=== PATIENT | female | born 1960 | race African-American/Black ===

== ENCOUNTER 2019-09-04 00:45 | Outpatient (CLI) | payer OTHER, SELFPAY ==
[2019-09-04 18:07] LABS: SARS-CoV-2 RNA PCR Negative
== END 2019-09-04 00:46 | disposition home or self-care (01) ==
LOC: ANHCOVIDDT 00:45
PROVIDERS: PCP Family Medicine; Visit Provider Internal Medicine Gastroenterology
DX: Z01.812 Encounter for preprocedural laboratory examination (principal); Z11.59 Encounter for screening for other viral diseases
CPT/HCPCS: 87635; C9803; U0003

== ENCOUNTER 2020-01-05 08:57 | Emergency (ER) | payer BC, SELFPAY ==
--- NOTE | 2020-01-05 08:58 | ED.GENADULT ---
HPI - General Adult General Chief complaint: Urogenital-Female Stated complaint: UTI SYMPTOMS Time Seen by Provider: 01/05/20 08:58 Source: patient Mode of arrival: ambulatory Limitations: no limitations History of Present Illness HPI narrative: 59-year-old female patient presents to the [facility] with complaints of low back pain for the past 2 to 3 days. Patient denies any injury to the low back that she is aware of. Patient states is on both sides right above the buttocks. Patient states it hurts worse when up walking around and laying flat on her back. Patient states she has been taking some Aleve which has helped the pain at times. Denies any numbness or tingling down the legs and denies any loss of bowel or bladder control. Patient denies any pain with urination, urgency or frequency. Denies any fevers, body aches or chills. Related Data Allergies Allergy/AdvReac Type Severity Reaction Status Date / Time meclizine Allergy Unknown Unknown Verified 01/05/20 09:02 Penicillins Allergy Unknown Unknown Verified 01/05/20 09:02 amoxicillin AdvReac Mild NAUSEA Verified 01/05/20 09:02 Review of Systems Review of Systems: Narrative: CONSTITUTIONAL: Denies fever, chills, or sweats. EYES: Denies visual changes, redness, or discharge. ENT: Denies rhinorrhea, congestion, sore throat, or otalgia. CARDIOVASCULAR: Denies chest pain, palpitations, or edema. RESPIRATORY: Denies cough or dyspnea. GASTROINTESTINAL: Denies abdominal pain, nausea, vomiting, or diarrhea. GENITOURINARY: Denies dysuria or hematuria. SKIN: Denies rash or itching. MUSCULOSKELETAL: Positive low back pain, denies joint pain, or myalgia. NEUROLOGIC: Denies headache, numbness, or weakness. PSYCHIATRIC: Denies anxiety or depression. [facility] Past Medical History Medical History (Updated 01/05/20 @ 09:23 by KARISSA Reagan) Fibroids GERD (gastroesophageal reflux disease) H/O benign neoplasm of eye Hypertension Left hip pain Surgical History Surgical History History of cholecystectomy History of partial hysterectomy History of tubal ligation Family History Family History Unknown No family history of disorders Social History Social History Smoking status: Former smoker Second hand tobacco smoke exposure: No Smoking end date: 02/27/91 Alcohol intake: never Substance use: never Substance use type: does not use Additional living arrangements comments: Adult children live with the pt at her home. Gender identity (if verbalized by the patient): Female Spiritual care concerns: Yes Agree to blood products: Yes Comments At the time of my signature I agree with nursing past medical history, surgical, social, and family history. There is no relevant family history pertinent to the presenting complaint. Exam Narrative: Exam Narrative: GENERAL: Well-appearing, well-nourished, and in no acute distress. HEAD: Normocephalic, atraumatic. EYES: PERRLA and EOMI. ENT: Nares clear, no rhinorrhea or epistaxis. Mucous membranes moist. NECK: Supple. No lymphadenopathy CHEST: Clear to auscultation. No respiratory distress. HEART: Regular rate and rhythm. No murmur heard. Normal peripheral pulses. ABDOMEN: Soft, nontender, nondistended, normal active bowel sounds. BACK: Patient is able to ambulated without assistance. Pt is seated on the stretcher in no obvouis distress. No surface trauma noted. No muscle tenderness to Palpation. No spasm or mass. No step-offs or deformity noted to the cervical, thoracic or lumbar spine to firm Palpation at the midline. Patient does have tenderness noted bilateral sides of the lower lumbar area right above the buttocks. No CVA tenderness to percussion. No saddle anesthesia. ROM: able to stand erect. Normal flexion, extension, Lateral bending and rotation withou
[2020-01-05 09:03] VITALS: BP 136/67; PULSE 83; RESP 12; TEMP 36.2; O2SAT 100
== END 2020-01-05 09:37 | disposition home or self-care (01) ==
PROVIDERS: Emergency Provider Nurse Practitioner Family; PCP Family Medicine
DX: M54.31 Sciatica, right side (principal); Z87.891 Personal history of nicotine dependence; K21.9 Gastro-esophageal reflux disease without esophagitis; I10 Essential (primary) hypertension; Z90.711 Acquired absence of uterus with remaining cervical stump
CPT/HCPCS: 81003; 99213; G0463

== ENCOUNTER 2020-01-10 08:36 | Outpatient (CLI) | payer BC, SELFPAY ==
--- NOTE | ~2020-01-10 | MM_ITS ---
EXAMINATION: MM screening [facility] BI w bren HISTORY: Screening mammogram TECHNIQUE: Craniocaudal and mediolateral oblique 3-D tomosynthesis images were obtained and synthetic 2-D images were generated. CAD analysis was submitted and interpreted. COMPARISON: 05/08/2017, 12/07/2015, 10/23/2014 BREAST PARENCHYMAL COMPOSITION: There are scattered areas of fibroglandular density. FINDINGS: Changes of bilateral subareolar excisional biopsy are noted. There is no evidence of suspic ious mass, calcification, or architectural distortion to suggest malignancy in either breast. There h as been no suspicious interval change. IMPRESSION: 1. No mammographic evidence of malignancy. 2. Recommend routine screening mammography in one year. BI-RADS Category 2: Benign finding(s). Reviewed, dictated and finalized at location A. 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
== END 2020-01-10 08:37 | disposition home or self-care (01) ==
LOC: ANHIMG 08:37
PROVIDERS: PCP Family Medicine; Visit Provider Obstetrics & Gynecology
DX: Z12.31 Encounter for screening mammogram for malignant neoplasm of breast (principal)
CPT/HCPCS: 77063; 77067

== ENCOUNTER 2020-01-14 14:27 | Outpatient (CLI) | payer BC, SELFPAY ==
--- NOTE | ~2020-01-14 | XR_ITS ---
XR lumbar spine 2-3V DATE: 01/14/2020 14:51 INDICATION: Low back pain for one week TECHNIQUE: AP, lateral, coned lateral lumbosacral views COMPARISON: None FINDINGS: Normal alignment of the lumbar spine. No fracture or bone destruction or spondylolisthesis. The lumbar pedicles are intact. There is mild degenerative disc disease at L2-3 and L3-4. The sacroiliac joints are intact. Surgical clips, right upper quadrant, consistent with cholecystectomy IMPRESSION: Mild degenerative disc disease at L2-3 and L3-4 Status post cholecystectomy Reviewed, dictated and finalized at location B. 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
--- NOTE | ~2020-01-14 | XR_ITS ---
XR sacroiliac joints min 3V DATE: 01/14/2020 14:50 INDICATION: Low back pain for one week. No known injury. TECHNIQUE: AP and bilateral oblique views COMPARISON: None FINDINGS: No fracture or dislocation, erosive change or ankylosis of the sacroiliac joints. The pubic symphysis is intact. IMPRESSION: Negative Reviewed, dictated and finalized at Location A. Reviewed, dictated and finalized at location B. 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
== END 2020-01-14 14:28 | disposition home or self-care (01) ==
LOC: ANHIMG 14:30
PROVIDERS: PCP Family Medicine; Visit Provider Family Medicine
DX: M51.36 Other intervertebral disc degeneration, lumbar region (principal)
CPT/HCPCS: 72100; 72202

== ENCOUNTER 2020-08-14 07:07 | Outpatient (CLI) | payer OTHER, SELFPAY ==
[2020-08-14 07:30] LABS: Hematocrit 42.8 % (37.0-47.0); Hemoglobin 13.8 g/dL (12.0-15.0); Mean Corpuscular HGB Conc 32.2 g/dl (32-36); Mean Corpuscular Hemoglobin 27.4 pg (26-34); Mean Corpuscular Volume 85.1 fl (80-100); Mean Platelet Volume 10.5 fl (7.4-10.4); Platelet Count Result 202 k/mm3 (150-375); Red Blood Count 5.03 M/mm3 (4.2-5.4); White Blood Count 4.4 K/mm3 (4.5-10.0)
[2020-08-14 07:45] LABS: Alanine Aminotransferase 39 U/L (4-35); Albumin Level 4.3 g/dL (3.5-5.1); Alkaline Phosphatase 79 U/L (38-126); Anion Gap 8 mmol/L (8-16); Aspartate Amino Transferase 30 U/L (14-36); Bilirubin,Total 0.6 mg/dL (0.2-1.3); Blood Urea Nitrogen 15 mg/dL (7-17); Calcium 9.8 mg/dL (8.4-10.2); Carbon Dioxide 25 mmol/L (22-30); Chloride 108 mmol/L (98-107); Estimated Glomerular Filt Rate > 60; Glucose 106 mg/dL (65-105); Potassium 4.5 mmol/L (3.4-5.0); Sodium 141 mmol/L (137-145)
[2020-08-14 08:21] LABS: Free T4 Free Thyroxine 0.88 ng/mL (0.78-2.19)
[2020-08-18 05:09] LABS: Vitamin D 1,25 (OH)2 Total 45 pg/mL (18-72); Vitamin D2 1,25 (OH)2 <8 pg/mL; Vitamin D3 1,25 (OH)2 45 pg/mL
== END 2020-08-14 07:08 | disposition home or self-care (01) ==
LOC: ANHLAB 07:10
PROVIDERS: PCP Family Medicine; Visit Provider Physician Assistant
DX: E53.8 Deficiency of other specified B group vitamins (principal); E55.9 Vitamin D deficiency, unspecified; R53.83 Other fatigue
CPT/HCPCS: 36415; 80053; 82607; 82652; 84439; 84443; 85027

== ENCOUNTER 2020-11-12 07:40 | Outpatient (CLI) | payer OTHER, SELFPAY ==
[2020-11-12 08:18] LABS: Basophils Percent Auto 0.5 % (0.2-1.2); Eosinophils Absolute Auto 0.1 K/mm3 (0-0.3); Eosinophils Percent Auto 1.3 % (0-4.4); Hematocrit 43.8 % (37.0-47.0); Hemoglobin 13.9 g/dL (12.0-15.0); Lymphocytes Absolute Auto 1.84 K/mm3 (0.9-3.2); Lymphocytes Percent Auto 47.9 % (18.3-44.2); Mean Corpuscular HGB Conc 31.7 g/dl (32-36); Mean Corpuscular Hemoglobin 27.8 pg (26-34); Mean Corpuscular Volume 87.6 fl (80-100); Mean Platelet Volume 10.6 fl (7.4-10.4); Monocytes Absolute Auto 0.2 K/mm3 (0.1-0.6); Monocytes Percent Auto 5.2 % (2.6-8.5); Neutrophils Absolute Auto 1.7 K/mm3 (1.3-6.7); Neutrophils Percent Auto 45.1 % (45.5-73.1); Platelet Count Result 188 k/mm3 (150-375); Red Cell Distribution Width 14.9 % (11.5-14.5); White Blood Count 3.8 K/mm3 (4.5-10.0)
[2020-11-12 08:39] LABS: Hemoglobin A1C 5.7 % (<5.7)
[2020-11-12 08:44] LABS: Alanine Aminotransferase 46 U/L (4-35); Albumin Level 4.5 g/dL (3.5-5.1); Alkaline Phosphatase 80 U/L (38-126); Anion Gap 9 mmol/L (8-16); Aspartate Amino Transferase 31 U/L (14-36); Bilirubin,Total 0.6 mg/dL (0.2-1.3); Blood Urea Nitrogen 16 mg/dL (7-17); Calcium 9.7 mg/dL (8.4-10.2); Carbon Dioxide 26 mmol/L (22-30); Chloride 107 mmol/L (98-107); Cholesterol 241 mg/dL (0-200); Estimated Glomerular Filt Rate > 60; Glucose 105 mg/dL (65-110); HDL Direct 76 mg/dL; Potassium 4.4 mmol/L (3.4-5.0); Sodium 142 mmol/L (137-145); Triglycerides 79 mg/dL (<150)
[2020-11-12 08:55] LABS: LDL Cholesterol Direct 102 mg/dL
[2020-11-12 09:11] LABS: Free T4 Free Thyroxine 0.82 ng/mL (0.78-2.19)
[2020-11-12 09:19] LABS: HIV 1/2 Ab P24 Ag Result Negative (Negative)
[2020-11-12 09:43] LABS: Hepatitis C Virus Antibody Negative (Negative)
== END 2020-11-12 07:41 | disposition home or self-care (01) ==
LOC: ANHLAB 07:46
DX: Z00.00 Encounter for general adult medical examination without abnormal findings (principal)
CPT/HCPCS: 36415; 80053; 80061; 83036; 84439; 84443; 85025; 86703; 86803; G0432

== ENCOUNTER 2021-06-18 07:28 | Outpatient (CLI) | payer OTHER, SELFPAY ==
--- NOTE | ~2021-06-18 | MM_ITS ---
EXAMINATION: MM screening [facility] BI w bren HISTORY: Screening mammogram TECHNIQUE: Craniocaudal and mediolateral oblique 3-D tomosynthesis images were obtained and synthetic 2-D images were generated. CAD analysis was submitted and interpreted. COMPARISON: 01/10/2020, 05/08/2017, 12/07/2015 bilateral screening mammogram examinations BREAST PARENCHYMAL COMPOSITION: There are scattered areas of fibroglandular density. FINDINGS: Surgical clips are noted in each of the subareolar areas, in addition to a biopsy marker in the left subareolar area. History of bilateral excisional biopsies with benign pathology. There is n o evidence of suspicious mass, calcification, or architectural distortion to suggest malignancy in ei ther breast. There has been no suspicious interval change. IMPRESSION: 1. No mammographic evidence of malignancy. 2. Recommend routine screening mammography in one year. BI-RADS Category 2: Benign Reviewed, dictated and finalized at location A.
== END 2021-06-18 07:29 | disposition home or self-care (01) ==
DX: Z12.31 Encounter for screening mammogram for malignant neoplasm of breast (principal)
CPT/HCPCS: 77063; 77067

== ENCOUNTER 2022-05-10 17:36 | Emergency (ER) | payer SELFPAY ==
--- NOTE | ~2022-05-10 | XR_ITS ---
EXAMINATION: XR chest 2V Exam Date/Time: 05/10/2022 17:43 CDT HISTORY: CP Comparison: 01/03/2014. RESULT: Lines, tubes, and devices: Cholecystectomy clips. Surgical clips and biopsy marker overlying the lef t breast. Lungs and pleura: Minimal streaky bibasilar atelectasis/scarring. Lungs otherwise clear. Calcified g ranuloma in the peripheral right lower lung. Cardiomediastinal silhouette: Stable. Other: No acute osseous or upper abdominal finding. IMPRESSION: No acute cardiopulmonary process. Reviewed, dictated and finalized at location K.
--- NOTE | ~2022-05-10 | CT_ITS ---
Clinical Indication: Chest pain CT Scan of the Chest with Contrast: Technique: Contiguous sections were acquired throughout the chest after intravenous administration of 100 cc of Omnipaque 350. Dose reduction technique was used on this scan by utilizing automated expos ure control and iterative reconstruction technique. The dose-length product (DLP) was 311.98 mGy-cm. Findings: There is no evidence of any significant mediastinal, hilar or axillary lymphadenopathy. There is no f illing defect in the pulmonary arterial tree to suggest pulmonary embolus. There is no evidence of ao rtic dissection or aneurysm. There is no evidence of pleural or pericardial effusion. The lungs are clear, aside from mild dependent atelectatic changes. Images through the upper abdomen reveal 4.5 cm hypodense left hepatic lobe mass, which is unchanged a s compared to prior CT dated 01/13/2018.. Impression: No evidence of pulmonary embolus, aortic dissection, or aortic aneurysm. Mild dependent atelectatic changes, otherwise clear lungs. Stable 4.5 cm left hepatic lobe mass, shown previously to represent hemangioma. Reviewed, dictated and finalized at location . Impression: No evidence of pulmonary embolus, aortic dissection, or aortic aneurysm. Mild dependent atelectatic changes, otherwise clear lungs. Stable 4.5 cm left hepatic lobe mass, shown previously to represent hemangioma.
--- NOTE | 2022-05-10 17:39 | ECG_ITS ---
Measurements Intervals [place] Rate: 97 P: 64 UT: 195 QRS: 9 QRSD: 72 T: 47 QT: 337 QTc: 430 Interpretive Statements SINUS RHYTHM NONSPECIFIC ST & T-WAVE ABNORMALITY- ANTEROLAT/INF LEADS BORDERLINE ECG NO PREVIOUS ECG AVAILABLE FOR COMPARISON Electronically Signed On 05-10-2022 21:34:54 CDT by Rod Duran D.O.
[2022-05-10 17:53] VITALS: BP 133/81; PULSE 89; RESP 14; TEMP 36.7; O2SAT 99
[2022-05-10 17:59] LABS: Basophils Percent Auto 0.6 % (0.2-1.2); Eosinophils Absolute Auto 0.1 K/mm3 (0-0.3); Eosinophils Percent Auto 1.7 % (0-4.4); Hematocrit 42.6 % (37.0-47.0); Immature Granulocyte Absolute 0.01 K/mm3 (0.00-0.031); Immature Granulocyte Percent A 0.2 % (0-0.5); Lymphocytes Absolute Auto 2.15 K/mm3 (0.9-3.2); Mean Corpuscular HGB Conc 32.9 g/dl (32-36); Mean Corpuscular Hemoglobin 27.7 pg (26-34); Mean Corpuscular Volume 84.2 fl (80-100); Mean Platelet Volume 10.4 fl (7.4-10.4); Monocytes Absolute Auto 0.3 K/mm3 (0.1-0.6); Monocytes Percent Auto 4.8 % (2.6-8.5); Neutrophils Absolute Auto 2.7 K/mm3 (1.3-6.7); Neutrophils Percent Auto 51.7 % (45.5-73.1); Platelet Count Result 211 k/mm3 (150-375); Red Blood Count 5.06 M/mm3 (4.2-5.4); Red Cell Distribution Width 14.8 % (11.5-14.5); White Blood Count 5.2 K/mm3 (4.5-10.0)
[2022-05-10 18:09] LABS: Alanine Aminotransferase 43 U/L (6-35); Albumin Level 4.5 g/dL (3.5-5.1); Alkaline Phosphatase 85 U/L (38-126); Anion Gap 5 mmol/L (8-16); Aspartate Amino Transferase 34 U/L (14-36); Bilirubin,Total 0.7 mg/dL (0.2-1.3); Blood Urea Nitrogen 10 mg/dL (7-17); Calcium 9.3 mg/dL (8.4-10.2); Carbon Dioxide 26 mmol/L (22-30); Chloride 110 mmol/L (98-107); Estimated CRCL calculation 68 ml/min; Estimated Glomerular Filt Rate > 60; Glucose 119 mg/dL (65-110); Lipase 87 U/L (23-300); Potassium 3.5 mmol/L (3.4-5.0); Sodium 141 mmol/L (137-145)
[2022-05-10 18:15] LABS: INR 1.1; Prothrombin Time 13.9 Seconds (11.1-14.7)
[2022-05-10 18:16] LABS: Partial Thromboplastin Time 27.4 SECONDS (22.3-36.8)
[2022-05-10 18:18] LABS: Troponin I < 0.012 ng/mL (0.000-0.034)
[2022-05-10 21:37] VITALS: PULSE 66
[2022-05-10 21:38] VITALS: BP 119/86; PULSE 78; RESP 16; O2SAT 98
[2022-05-10 21:51] LABS: Troponin I < 0.012 ng/mL (0.000-0.034)
[2022-05-10 22:00] VITALS: BP 124/77; PULSE 73; RESP 18; O2SAT 95
[2022-05-10 23:00] VITALS: BP 109/75; PULSE 68; RESP 17; O2SAT 95
[2022-05-10] MEDS: KETOROLAC 30 MG/ML VIAL (*BKC) 15 MG IV PUSH (23:28)
--- NOTE | 2022-05-11 00:55 | ED.GENADULT ---
HPI - General Adult General Chief complaint: Chest Pain Stated complaint: Chest Pain Time Seen by Provider: 05/10/22 21:24 History of Present Illness HPI narrative: Patient is a 61-year-old female who presents emerged from with chief complaint of chest pain. Patient reports has been having pain in the right side of her chest reports it started about a week ago reports sharp worse with inspiration worse with movement and palpation Related Data Allergies Allergy/AdvReac Type Severity Reaction Status Date / Time meclizine Allergy Unknown Unknown Verified 01/05/20 09:02 Penicillins Allergy Unknown Unknown Verified 01/05/20 09:02 amoxicillin AdvReac Mild NAUSEA Verified 01/05/20 09:02 Review of Systems Review of Systems: A 10 system review of systems was completed on the patient and is negative except for what is stated in the HPI. Nursing and ancillary documentation was reviewed. [facility] Past Medical History Medical History Fibroids GERD (gastroesophageal reflux disease) H/O benign neoplasm of eye Hypertension Left hip pain Surgical History Surgical History History of cholecystectomy History of partial hysterectomy History of tubal ligation Family History Family History Unknown No family history of disorders Social History Social History Smoking status: Former smoker Second hand tobacco smoke exposure: No Smoking end date: 02/27/91 Alcohol intake: never Substance use: never Substance use type: does not use Living arrangements: with friend(s) Additional living arrangements comments: Adult children live with the pt at her home. Occupation/Education: occupation Gender identity (if verbalized by the patient): Female Spiritual care concerns: Yes Agree to blood products: Yes Exam Narrative: GENERAL: Well-appearing, well-nourished, and in no acute distress. HEAD: Normocephalic, atraumatic. EYES: PERRLA and EOMI. ENT: Nares clear, no rhinorrhea or epistaxis. Mucous membranes moist. NECK: Supple. CHEST: Clear to auscultation. No respiratory distress. Chest wall is tender to palpation HEART: Regular rate and rhythm. No murmur heard. Normal peripheral pulses. ABDOMEN: Soft, nontender, nondistended, normal active bowel sounds. EXTREMITIES: Normal range of motion. No edema. SKIN: Warm, dry, no rash. NEURO: No focal deficits. Alert and oriented x3. PSYCH: Normal mood and affect. Course Vital Signs Vital signs: Vital Signs Temperature 36.7 C 05/10/22 17:53 Pulse Rate 89 05/10/22 17:53 Respiratory Rate 14 05/10/22 17:53 Blood Pressure 133/81 05/10/22 17:53 Pulse Oximetry 99 05/10/22 17:53 Oxygen Delivery Room Air 05/10/22 17:53 Temperature 36.7 C 05/10/22 17:53 Pulse Rate 64 05/11/22 01:36 Respiratory Rate 17 05/11/22 01:36 Blood Pressure 128/87 05/11/22 01:36 Pulse Oximetry 97 05/11/22 01:36 Oxygen Delivery Room Air 05/10/22 17:53 Medical Decision Making MDM Narrative Medical decision making narrative: Differential diagnosis include pleuritic pain, chest wall pain, pulmonary embolism, ACS, Presents with EKG shows sinus rhythm rate of [address] elevation or ST depression Chest x-ray shows no focal infiltrate CT of the chest showed no evidence of pulmonary embolism or acute findings. Laboratory studies were obtained which showed negative troponins for 2 sets. Normal electrolytes including normal liver enzymes. CBC was within normal limits Vital Signs Vital Signs: Vital Signs Temperature 36.7 C 05/10/22 17:53 Pulse Rate 89 05/10/22 17:53 Respiratory Rate 14 05/10/22 17:53 Blood Pressure 133/81 05/10/22 17:53 Pulse Oximetry 99 05/10/22 17:53 Oxygen Delivery Room Air
[2022-05-11 01:36] VITALS: BP 128/87; PULSE 64; RESP 17; O2SAT 97
[2022-05-11 02:15] VITALS: BP 120/88; PULSE 62; RESP 16; O2SAT 98
== END 2022-05-11 02:15 | disposition home or self-care (01) ==
PROVIDERS: Emergency Medicine; Emergency Provider Emergency Medicine
DX: R07.89 Other chest pain (principal); I10 Essential (primary) hypertension; K21.9 Gastro-esophageal reflux disease without esophagitis; Z90.711 Acquired absence of uterus with remaining cervical stump; Z87.891 Personal history of nicotine dependence; R94.31 Abnormal electrocardiogram [ECG] [EKG]; D18.09 Hemangioma of other sites
CPT/HCPCS: 36415; 71046; 71275; 80053; 83690; 84484; 85025; 85610; 85730; 93005; 96374; 99284; J1885; Q9967

== ENCOUNTER 2023-06-05 12:23 | Outpatient (CLI) | payer SELFPAY ==
--- NOTE | ~2023-06-05 | MM_ITS ---
EXAMINATION: MM screening [facility] BI w bren HISTORY: Screening mammogram TECHNIQUE: Craniocaudal and mediolateral oblique 3-D tomosynthesis images were obtained and synthetic 2-D images were generated. CAD analysis was submitted and interpreted. COMPARISON: June 16, 2021, January 10, 2020 bilateral screening mammogram examinations BREAST PARENCHYMAL COMPOSITION: There are scattered areas of fibroglandular density. FINDINGS: Surgical clips and associated chronic postoperative change are noted in both subareolar are as. Occasional small low-density circumscribed benign-appearing opacities are noted. There is no evid ence of suspicious mass, calcification, or architectural distortion to suggest malignancy in either b reast. There has been no suspicious interval change. IMPRESSION: 1. No mammographic evidence of malignancy. 2. Recommend routine screening mammography in one year. BI-RADS Category 2: Benign finding(s). Reviewed, dictated and finalized at location B.
== END 2023-06-05 12:24 ==
PROVIDERS: PCP Obstetrics & Gynecology; Visit Provider Obstetrics & Gynecology
DX: Z12.31 Encounter for screening mammogram for malignant neoplasm of breast (principal)
CPT/HCPCS: 77063; 77067

== ENCOUNTER 2024-09-14 05:51 | Emergency (ER) | payer SELFPAY ==
[2024-09-14] VITALS (7 sets, daily range): BP systolic 104–111; BP diastolic 78–80; PULSE 65–80; RESP 18–20; TEMP 36.9; O2SAT 98–100
--- NOTE | ~2024-09-14 | XR_ITS ---
EXAMINATION: XR chest 2V 09/14/2024 06:30 INDICATION: Shortness of breath PROCEDURE: PA and lateral views of the chest COMPARISON: 05/10/2022 FINDINGS: The lungs are clear. The cardiomediastinal silhouette is within normal limits. There are no pleural effusions. There is no pneumothorax suspected. IMPRESSION: 1: NO ACUTE CARDIOPULMONARY DISEASE. Reviewed, dictated and finalized at location A.
--- OUTSIDE RECORDS SUMMARY | 2024-09-14 05:54 | XMS_ITS | Clinical Summary ---
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
--- OUTSIDE RECORDS SUMMARY | 2024-09-14 05:54 | XMS_ITS | Clinical Summary ---
Author Organization [facility] [employer] Address [address] [place] [address] Care Team Providers Care Surveillance Inspector Name Role Phone Yousuf Blair MD Primary Care Provider [phone] Source Comments [facility] [employer],non-owned Affiliates and Associated Physician Practices is amultiple site organization consisting of ambulatory clinics and hospital sitesin [place], [place], [place] and [place]. This disclosure is being madepursuant to the Care Everywhere program and may not contain all information available regarding this patient. Last updated 17.[facility] [employer] Allergies Active Allergy Reactions Criticality Noted Date Comments Amoxicillin 12/16/2015 Medications * Be aware that medications may not be up to date on this document. Always verify current medications with the patient. 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 Gender Identity Not on file Sexual Orientation Not on file Last Filed Vital Signs Vital Sign Reading Time Taken Comments Blood Pressure 125/75 03/20/2018 8:55 AM TRUCK DRIVER HELPER Pulse 69 03/20/2018 8:55 AM TRUCK DRIVER HELPER Temperature 36.9 C (98.5 F) 03/20/2018 8:25 AM TRUCK DRIVER HELPER Respiratory Rate 18 03/20/2018 8:55 AM TRUCK DRIVER HELPER Oxygen Saturation 97% 03/20/2018 8:55 AM TRUCK DRIVER HELPER Inhaled Oxygen Concentration - - Weight 72.6 kg (160 lb) 03/20/2018 6:46 AM TRUCK DRIVER HELPER Height 154.9 cm (5' 1) 03/20/2018 6:46 AM TRUCK DRIVER HELPER Body Mass Index 30.23 03/20/2018 6:46 AM TRUCK DRIVER HELPER Plan of Treatment Health Maintenance Due Date Last Done Comments COLOGUARD (AGES 45-75) - COL ON CA SCREENING 1961 COLON MONITORING 1961 COLONOSCOPY - COLON CA SCREENING 1961 CT COLONOGRAPHY - COLON CA SCREENING 1961 Colorectal Cancer Screening 1961 FIT - COLON CA SCREENING 1961 FLEX SIG - COLON CA SCREENING 1961 LIPID TESTING 1961 MAMMOGRAM 1961 HIV SCREENING 1976 HEPATITIS C SCREENING 11/18/1979 DTAP/TDAP/TD VACCINES (1 - Tdap) 1980 PNEUMOCOCCAL VACCINE 50+ (1 of 1 - PCV) 11/23/2011 ZOSTER VACCINE (1 of 2) 11/23/2011 COVID-19 VACCINE (3 - 2023-2 5 season) 2023 06/19/2020, 05/22/2020 DEPRESSION SCREENING 02/28/2024 INFLUENZA VACCINE (#1) 2024 Respiratory Syncytial Virus (RSV) Vaccine Pt: or over 60 yrs (1 - 1-dose 75+ series) 2036 HEPATITIS B VACCINE Aged Out No longe r eligible based on patient's age to complete this topic HIB VACCINE Aged Out No longer eligi ble based on patient's age to complete this topic HPV VACCINE Aged Out No longer eligi ble based on patient's age to complete this topic MENINGOCOCCAL (Group B) VACCINE SHARED DECISION-MAKING Aged Out No longer eligible based on patient's age to complete this topic MENINGOCOCCAL GROUPS A/C/Y/W VACCINE Aged Out No longer eligible b ased on patient's age to complete this topic Insurance ANTHEM ANTHEM ANTHEM ANTHEM Advance Directives * Full Code (Latest Code Status on File) Date Activated Date Inactivated Comments 03/20/2018 6:43 AM 03/20/2018 10:15 AM Care Teams Surveillance Inspector Relationship Specialty Start Date End Date Yousuf Blair MD [address] [place] [address] PCP - General 09/03/10
--- OUTSIDE RECORDS SUMMARY | 2024-09-14 05:54 | XMS_ITS | Referral Summary ---
Author Organization [facility] Medical Office Building [address] Address [address] [place] [address] Care Team Providers Care Process Manager Name Role Phone Katharine Negro MD Primary Care Provide r Allergies Active Allergy Reactions Criticality Noted Date Comments Amoxicillin Vomiting Low 12/16/2015 Medications multivitamin tablet Take 1 tablet by mouth 3 (three) times a day with meals Active dimenhyDRINATE (Dramamine) 50 mg tablet,chewable Indications:Maria Elena tigo Take 50 mg by mouth 4 (four) times a day 60 tablet 1 Active Additional Information Patient not taking.Reported on 05/23/2022 tiZANidine (ZANAFLEX) 2 mg tabletIndicatio ns:Muscle Spasm Take 1 tablet (2 mg total) by mouth every 6 (six) hours as needed for muscle spasms for up to 14 days 30 tablet [address] (PROTONIX) 40 mg EC tablet TAKE 1 TABLET BY MOUTH EVERY DAY 90 tablet 3 Active meclizine (ANTIVERT) 12.5 mg tablet Take 1 tablet (12.5 mg total) by mouth 3 (three) times a day as needed for dizziness 90 tablet 4 3 Active scopolamine 1 mg over 3 days patch [address] 1 patch on the skin every third day as needed (nausea) 4 patch 3 Active irbesartan (AVAPRO) 150 mg tablet TAKE 1 TABLET BY MOUTH EVERY DAY 30 tablet 4 Active Active Problems Problem Noted Date Diagnosed Date Other chest pain 05/23/2022 Assessment & Plan (09/06/2022 5:03 PM CDT): Likely MSK Holter monitor unremarkable She went to [place] and had ct of the chest which was negative for PE, states the EKG was negative as well Offered physical therapy but declines. Wants to do the exercises a physical therapist told her about. Recommend Go to the ER for worsening chest pain If no improvement will exercises can consider cardio referral but very low suspicion for acs Assessment & Plan (05/23/2022 8:47 AM CDT): Ordered 21 day cardio net monitor Seek ER if chest pain worsens, or starts on left side with radiating pain to arm and/or jaw Muscle spasm of shoulder region 05/23/2022 Assessment & Plan (05/23/2022 8:47 AM CDT): Ordered Tizanidine 2 mg every 6 hours prn Ordered PT eval and tx for muscle spasm/strain of trapezius Alternate ice and heat prn at 20 minute intervals Gastroesophageal reflux disease without esophagi tis 05/23/2022 Overview (05/23/2022): Ordered pantoprazole 40 mg daily for 8 week trial Healthy diet- avoid spicy, greasy, fried, and fatty foods Avoid late night eating Encounter for follow-up exam ination after completed treatment for conditions other than malignant neoplasm 05/23/2022 Overview (05/23/2022): We discussed patient emergency room visit and complaints Will obtain emergency room documentation, labs, and Imaging reports for review- request has been sent Follow up in 3 months Elevated ALT measurement 11/23/2020 Assessment & Plan (11/23/2020 9:51 AM CDT): Slightly elevated alt in the 40s on labs Patient states has been elevated in the past Will continue to monitor and should it increase will do further testing Encounter for wellness examination 11/09/2020 Assessment & Plan (11/09/2020 10:08 AM CDT): Colonoscopy due in 2024 Pap smear with Ob Mammo refer order today Tdap given today Recommending getting zoster vaccine at pharmacy as there is a long wait list for the zoster vaccine at our location Will order a CBC, a CMP, lipid panel, TSH, T4, hepatitis-C, and HIV RTC in November for flu vaccine Dizziness 11/09/2020 Assessment & Plan (09/06/2022 4:09 PM CDT): Likely vertigo Trial of meclizine tid prn Referral to ENT given F/u prn Assessment & Plan (05/23/2022 8:56 AM CDT): Encouraged to stay hydrated- drink plenty of water Patient has not taken dramamine- encouraged to take prn-use as directed Plan to consult ENT if no improvement Assessment & Plan (11/23/2020 9:26 AM CDT): [place] hallpike negative,Orthostatics negative in office Did Meagan maneuver in office given sowmya hallpike caused dizziness and hx of vertigo Patient did not take the Dramamine Encouraged to increase water intake Encouraged to go to the eye doctor If no improvement with diet, exercise, and increase water, can consider sending patient to neurology given has been going on for 3-4months Assessment & Plan (11/09/2020 10:02 AM CDT): Instructed patient to keep a diary of any aggravating or alleviating factors for her dizziness Encouraged low-salt diet and increase fluid intake Trial of Dramamine for 2 weeks. Risk and benefits reviewed. Follow-up in 2 weeks for evaluation Will consider neurology referral next visit if no clear etiology Essential hypertension 11/09/2020 Assessment & Plan (09/06/2022 5:04 PM CDT): Bp in the office today BP Readings from Last 1 Encounters: 09/06/22 118/70 at goal Continue current regimen of irbesartan 150mg daily Recommend DASH diet, heart-healthy lifestyle, exercise. Discussed the risks of hypertension. Follow up at annual Assessment & Plan (05/23/2022 8:48 AM CDT): Continue with Irbesartan 150 mg daily Monitor blood pressure prn Assessment & Plan (06/17/2021 8:40 AM CDT): Bp in the office today BP Readings from Last 1 Encounters: 06/17/21 118/80 at goal Continue current regimen of irbesartan 150mg daily Recommend DASH diet, heart-healthy lifestyle, exercise. Discussed the risks of hypertension. Follow up at annual Assessment & Plan (11/09/2020 10:05 AM CDT): Stable / clinically quiescent. Will continue to monitor. Continue current medication regimen of irbesartan 150 mg daily Recommend DASH diet, heart-healthy lifestyle, exercise. Discussed the risks of hypertension. History of colon polyps 12/11/2019 Overview (12/11/2019): Added automatically from request for surgery [id number] Resolved Problems Problem Noted Date Diagnosed Date Resolved Date Screen for colon cancer 12/11/201910/29 Overview (12/11/2019): Added automatically from request for surgery [id number] Immunizations Immunization Administration Dates Next Due Influenza, Unspecified 09/06/2022(Deferr ed: Patient Refused),05/23/2022(Deferred: Patient Refused),02/27/2022(Deferred: Patient Refused),09/27/2021(Deferred: Patient Refused),11/23/2020(Deferred: Patient Refused),11/09/2020(Deferred: Patient Refused),09/27/2020(Deferred: Patient Refused),11/28/2019(Deferred: Patient Refused),09/28/2019(Deferred: Patient Refused) TD Preservative Free 02/23/2004 Tdap 11/09/2020 Social History Tobacco Use Types Packs/Day Years Used Date Smoking Tobacco: Never Smokeless Tobacco: Never Tobacco Cessation:Counseling Given: Not Answered PHQ-2 Answer Date Recorded PHQ-2 Total Score (If total score is 3 or more points, staff should administer the PHQ-9) 0 09/06/2022 Personal Safety Answer Date Recorded Getting School Help Needed Not on file 05/06 Comments No Sex and Gender Information Value Date Recorded Sex Assigned at Not on file Legal Sex Female 4:04 PM CDT Gender Identity Not on file Sexual Orientation Not on file Last Filed Vital Signs Vital Sign Reading Time Taken Comments Blood Pressure 118/70 09/06/2022 3:51 PM CDT Pulse 85 09/06/2022 3:51 PM CDT Temperature 36.8 C (98.2 F) 11/09/2020 8:16 AM CDT Respiratory Rate 16 09/06/2022 3:51 PM CDT Oxygen Saturation 97% 09/06/2022 3:51 PM CDT Inhaled Oxygen Concentration - - Weight 73 kg (161 lb) 09/06/2022 3:51 PM CDT Height 154.9 cm (5' 0.98) 09/06/2022 3:51 PM CD T Body Mass Index 30.44 09/06/2022 3:51 PM CDT Plan of Treatment Not on file Procedures Procedure Name Priority Date/Time Associated Diagnosis Comments SCREENING MAMMOGRAM BILATERAL W FREDY Schedule Routine, Read Routine (OP Routine) 06/18/2021 Screening mammogram, encounter for HEPATITIS C ANTIBODY Routine 11/12/2020 COLONOSCOPY 12/27/2019 10:56 AM CDT from Last 3 Months or Most Recently Relevant to Health Maintenance Results * Screening Mammogram Bilateral W Fredy (06/18/2021) Anatomical Region Laterality Modality Breast Bilateral Mammography Katharine Negro MD IMG MAMMO PROCEDURES Final Result * Hepatitis C antibody (11/12/2020) SCRIBED HCV ab neg EXTERNAL LAB Blood specimen (specimen) 11/12/2020 Historical Provider LAB MICROBIOLOGY - GENERA L ORDERABLES Final Result EXTERNAL LAB * COLONOSCOPY (12/27/2019 10:56 AM CDT) Anatomical Region Laterality Modality Other Narrative Procedure Note Ben Lemus MD - 12/27/2019 10:56 AM CDT [facility] Patient Name: Raiza Pink Procedure Date: 12/27/2019 10:56AM Date of : 1960 Admit Type: Outpatient Age: 59 Gender: Female Attending MD: Ben Lemus M.D. Room: [facility] ENDOSCOPY ROOM 2 Note Status: Finalized Patient Profile: Refer to note in patient chart for documentation of history and physical. Procedure: Colonoscopy Indications: High risk colon cancer surveillance: Personalhistory of colonic polyps, Last colonoscopy: 2014 Referring MD: Darline Harris M.D. Providers: Ben Lemus M.D. Impression: - Hemorrhoids found on perianal exam. - One 2 mm polyp in the sigmoid colon, removed witha jumbo cold forceps. Resected and retrieved. - One 5 mm polyp in the rectum, removed with a hot biopsy forceps. Resected and retrieved. - Diverticulosis in the sigmoid colon. - The examination was otherwise normal. Recommendation: - Discharge patient to home. - Resume previous diet. - Continue present medications. - Await pathology results. - Repeat colonoscopy in 5 years for surveillance. - Return to primary care physician as previously scheduled. Medicines: Propofol per Anesthesia Complications: No immediate complications. Estimated Blood Loss: Estimated blood loss: none. Procedure: Pre-Anesthesia Assessment: - This assessment was completed [Time of Assessment] prior to the administration of sedation. The benefits, risks and alternatives of theprocedure and sedation were discussed and informed consent was obtained. All questions were answered. Please referto the signed informed consent document in the medical record. The scope was passed under direct vision.The Colonoscope [id number] was introducedthrough the anus and advanced to the the cecum, identifiedby appendiceal orifice and ileocecal valve. Bowel prepwas administered using a single dose. The bowelpreparation used was Miralax. The bowel preparation used was bisacodyl tablets. The colonoscopy was performed without difficulty. The patient tolerated theprocedure well. The quality of the bowel preparation was excellent. Findings: Hemorrhoids were found on perianal exam. A 2 mm polyp was found in the sigmoid colon. The polyp was sessile.The polyp was removed with a jumbo cold forceps. Resection and retrieval were complete. Verification of patient identification for thespecimen was done by the physician and nurse using the patient's name andbirth date. Estimated blood loss was minimal. A 5 mm polyp was found in the rectum. The polyp was sessile. Thepolyp was removed with a hot biopsy forceps. Resection and retrieval were complete. Verification of patient identification for the specimen was done by the physician and nurse using the patient's name and birthdate. Estimated blood loss was minimal. Multiple small and large-mouthed diverticula were found in thesigmoid colon. The exam was otherwise without abnormality. Electronically signed by Ben Lemus M.D. Ben Lemus M.D. 12/27/2019 11:28:53 AM Number of Addenda: 0 Note Initiated On: 12/27/2019 10:56 AM Procedure Code(s): --- Professional --- 78880, Colonoscopy, flexible; with removal of tumor(s), polyp(s), or other lesion(s) by hot biopsy forceps 20439, 59, Colonoscopy, flexible; with biopsy, single or multiple Diagnosis Code(s): --- Professional --- K57.30, Diverticulosis of large intestine without perforation orabscess without bleeding K62.1, Rectal polyp D12.5, Benign neoplasm of sigmoid colon K64.9, Unspecified hemorrhoids Z86.010, Personal history of colonic polyps CPT copyright 2017 [employer]. All rights reserved. The codes documented in this report are preliminary and upon hydrodynamics teacher reviewmay be revised to meet current compliance requirements. Recognized by the [employer] for promoting quality in endoscopy Ben Lemus MD ENDOSCOPY PROCEDURES Final Re sult from Last 3 Months or Most Recently Relevant to Health Maintenance Insurance [employer] Advance Directives For more information, please contact: [phone] * Full Code (Latest Code Status on File) Date Activated Date Inactivated Comments 12/27/2019 10:05 AM 12/27/2019 4:24 PM Care Teams Process Manager Relationship Specialty Start Date End Date Katharine Negro MD [address] [facility] [address] [place] [address] [place] [address] PCP - General Family Medicine 05/17/22
--- OUTSIDE RECORDS SUMMARY | 2024-09-14 05:54 | XMS_ITS | Data Portability ---
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 Raiza Pink is a 62 y/o F presenting to the clinic for 3 month follow up of her prediabetes. [email or web address] Not available 11/20/2023 07:58:01 07/16/2024 07/16/2024 Memory concern Cognitive Concerns Acute, uncomplicated - Cognitive testing - Cognitive engagement activities - Monitor symptom progression Not available 07/16/2024 19:01:35 Plan of Treatment Reminders Order Date Submit Date Provider Last Modified By Organization Details Last Modified Time Details Appointments None record ed. Lab HbA1c (hemog lobin A1c), blood 2024 025 [facility]ULLICA [facility], [address] [place] [address], [address], [place], [address], 5 08:28:48 lipid panel, serum 2024 025 [facility], [address] [place] [address], [address], [place], [address], 5 08:28:45 CBC w/ auto diff 2024 025 [facility], [address] [place] [address], [address], [place], [address], 5 08:28:51 TSH + free T4, serum 2024 025 [facility], [address] [facility], [address], [place], [address], 5 08:28:44 iron + TIBC + ferrit in, serum 2024 PAT[facility], [address] [place], [place] [address]ladi Gonzalez, [address], [place], [address], 08:28:52 vitami n B12, serum 2024 PATY [facility], [address] [place], [place] [address]ladi Gonzalez, [address], [place], [address], 5 08:28:49 vitami n D, 25-hyd justice, total, serum 2024 025 [facility], [address] [place], [place] [address]ladi Gonzalez, [address], [place], [address], 5 08:28:53 noninv asive colore ctal cancer DNA + occult blood screen ing, QL, stool 2024 [facility] Only), [address], [address], [place], [address], 5 10:15:19 CMP, serum or plasma 2024 025 [facility], [address] [place], [place] [address]ladi Gnozalez, [address], [place], [address], 5 08:28:47 rapid strep group A, throat 2023 024 [email or web address] In-Office Order, Internal Use Only DO Not Attach Compendium DO Not Attach Compendium, Do Not Delete/merge, [id number] 11:39:55 HbA1c (hemog lobin A1c), blood 2023 024 [email or web address] In-Office Order, Internal Use Only DO Not Attach Compendium DO Not Attach Compendium, Do Not Delete/merge, [id number] 17:02:12 Referral None record ed. Procedures polyso mnogra phy (PROC) [address], [address] [place] [address] [address], [place], [address], 5 18:30:27 Surgeries None record ed. Imaging MAMMO, screen ing, digita l, bilate ral 2024 025 [facility], [address] [place] [address], [address], 5 08:26:52 MAMMO, screen ing, digita l, bilate ral 2024 025 [facility] (Imaging), [facility] [address], [place], [address], 5 08:19:46 Medication Orders atorva statin 20 mg tablet 2024 025 [facility] [id number], [address], 5 10:10:54 irbesa rtan 150 mg tablet 2024 025 [facility] [address] In [place] [address] [facility], [place], [address], 5 10:10:13 ergoca lcifer ol (vitam in D2) 1,250 mcg (50,00 0 unit) capsul e 2024 025 [email or web address] [facility] In [facility], [address] , [place], [address], 09:09:58 nystat in 100,00 0 unit/g nish topica l cream 2024 025 PATY [id number] In [facility], [address], [place], [address], 11:17:41 cetiri zine 10 mg tablet 2023 024 [email or web address] [facility] [address] In [facility], [address], [place], [address], 10:30:05 flutic asone propio gavin 50 mcg/ac tuatio n nasal spray, suspen debra 2023 025 PATY [facility] [address] In [facility], [address] [facility], [place], [address], 10:29:53 Patient TargetsNo targets recorded. Patient Instructions Encounter Date Encounter Id Patient Instructions Last Modified By Organization Details Last Modified Time 11/16/2023 [id number] A healthy lifestyle: care instructions [email or web address] Not available 11/16/2023 17:02:11 I saw the patien t with the resident. I agree with the resident's assessment and plan as documented Jeffrey Pollock MD Not available 11/16/2023 17:00:56 01/31/2024 [id number] A healthy lifestyle: care instructions [email or web address] Not available 01/31/2024 11:39:55 On the date of this encounter, I was immediately available to assist the resident/fellow in the care of the patient, and have reviewed and agree with the resident s findings and plan of care as discussed during appointment. MD Foreign [email or web address] Not available 01/31/2024 10:42:45 05/06/2024 [id number] A healthy lifestyle: care instructions [email or web address] Not available 05/06/2024 11:17:37 mammogram: about this test Not available 05/06/2024 11:48:24 07/16/2024 [id number] high cholesterol : care instructions Not available 07/16/2024 10:09:57 A healthy lifestyle: care instructions Not available 07/16/2024 10:09:57 learning about high blood pressure [email or web address] Not available 07/16/2024 10:09:57 Dear patient, Thank you for visiting today. Here is a summary of the keith instructions: Medications: - Continue taking irbesartan for high blood pressure - Continue taking atorvastatin for cholesterol - Take prescription vitamin D weekly (high-dose) - Continue taking [id number] daily vitamin D if desired Labs and Tests: - Complete ordered blood tests, including: - Vitamin D level - B12 level - Iron levels - Blood counts - Thyroid function - Lipid panel - Cholesterol levels - A1c for prediabetes - Comprehensive metabolic panel (CMP) Screenings: - Schedule a pap smear with Dr. Pacheco - Complete Cologuard test when it arrives in the mail Lifestyle Changes: - Drink more water during the day and less in the evening - Stay active with walking or light weight lifting - Try puzzles or games like Sidelines or Sensdatau to keep your mind sharp Symptom Management: - For constipation, try prunes or MiraLax - For allergies, try [id number]-[id number] Zyrtec or Flonase - For eczema, avoid perfumes and oils, use topical steroids, and moisturize - Take blood pressure once a day, especially if you have a headache Follow-up: - Schedule an appointment with Dr. Pacheco for a pap smear - Wait for contact about lab results - Return for a follow-up visit if any lab results are abnormal Please reach out if you have any questions or concerns. Best Regards, Jeffrey Pollock MD Family Medicine Not available 07/16/2024 18:57:55 08/12/2024 [id number] mammogram: about this test Not available 08/12/2024 11:30:41 A healthy lifestyle: care instructions Not available 08/12/2024 18:06:51 Reason for Referral None Reported. Results Created Date Observation Date Name Description Value Unit Range Abnormal Flag Note LastModifiedBy Organization Detail LastModifiedTime 11/16/19 24 11/16/2023 HbA1c (hemo globi n A1c), blood HbA1c 5.9 Not Available In-Office Order Internal Use Only DO Not Attach Compendium DO Not Attach Compendium, Do Not Delete/merge, [id number] 11/16/2023 16:31:59 01/31/20 24 01/31/2024 rapid strep group A, throa t Strep negati ve Not Available In-Office Order Internal Use Only DO Not Attach Compendium DO Not Attach Compendium, Do Not Delete/merge, [id number] 01/31/2024 10:36:33 07/17/19 25 07/17/2024 TSH+F REE T4 TSH 1.430 uIU/m L 0.450- 4.500 Not Available [facility] ([facility]) [address] [place], [address], 07/17/2024 08:28:44 07/17/19 25 07/17/2024 TSH+F REE T4 T4,free(dire ct) 0.93 NG/dL 0.82-1 .77 Not Available [facility] ([facility]) [address] [place], [address], 07/17/2024 08:28:44 07/17/19 25 07/17/2024 LIPID PANEL cholesterol, total 171 mg/dL 100-19 9 Not Available [facility] ([facility]) [address] [place], [address], 07/17/2024 08:28:45 07/17/19 25 07/17/2024 LIPID PANEL triglyceride s 90 mg/dL 0-149 Not Available [facility]) [address] [place], [address], 07/17/2024 08:28:45 07/17/19 25 07/17/2024 LIPID PANEL HDL cholesterol 71 mg/dL >39 Not Available [facility]) [address] [place], [address], 07/17/2024 08:28:45 07/17/19 25 07/17/2024 LIPID PANEL VLDL cholesterol luz marina 16 mg/dL 5-40 Not Available [facility] ([facility]) [address] [place], [address], 07/17/2024 08:28:45 07/17/19 25 07/17/2024 LIPID PANEL LDL chol calc ([facility]) 84 mg/dL 0-99 Not Available [facility]) [address] [place], [address], 07/17/2024 08:28:45 07/17/19 25 07/17/2024 COMP. METAB OLIC PANEL (14) glucose 95 mg/dL 70-99 Not Available [facility] ([facility]) [address] [place], [address], 07/17/2024 08:28:47 07/17/19 25 07/17/2024 COMP. METAB OLIC PANEL (14) BUN 11 mg/dL 8-27 Not Available [facility] ([facility]) [address] [place], [address], 07/17/2024 08:28:47 07/17/19 25 07/17/2024 COMP. METAB OLIC PANEL (14) creatinine 0.90 mg/dL 0.57-1 .00 Not Available [facility] ([facility]) [address] [place], [address], 07/17/2024 08:28:47 07/17/19 25 07/17/2024 COMP. METAB OLIC PANEL (14) eGFR 72 mL/mi n/1.7 3 >59 Not Available [facility] ([facility]) [address] [place], [address], 07/17/2024 08:28:47 07/17/19 25 07/17/2024 COMP. METAB OLIC PANEL (14) BUN/creatini ne ratio 12 12-28 Not Available [facility] ([facility]) [address] [facility] [place], [address], 07/17/2024 08:28:47 07/17/19 25 07/17/2024 COMP. METAB OLIC PANEL (14) sodium 140 mmol/ L 134-14 4 Not Available [facility] ([facility]) [address] [facility] [place], [address], 07/17/2024 08:28:47 07/17/19 25 07/17/2024 COMP. METAB OLIC PANEL (14) potassium 4.3 mmol/ L 3.5-5. 2 Not Available [facility] ([facility]) [address] [place], [address], 07/17/2024 08:28:47 07/17/19 25 07/17/2024 COMP. METAB OLIC PANEL (14) chloride 106 mmol/ L 96-106 Not Available [facility] ([facility]) [address] [facility] [place], [address], 07/17/2024 08:28:47 07/17/19 25 07/17/2024 COMP. METAB OLIC PANEL (14) carbon dioxide, total 22 mmol/ L 20-29 Not Available [facility] ([facility]) [address] [place], [address], 07/17/2024 08:28:47 07/17/19 25 07/17/2024 COMP. METAB OLIC PANEL (14) calcium 9.9 mg/dL 8.7-10 .3 Not Available [facility] ([facility]) [address] [place], [address], 07/17/2024 08:28:47 07/17/19 25 07/17/2024 COMP. METAB OLIC PANEL (14) protein, total 7.2 g/dL 6.0-8. 5 Not Available [facility] ([facility]) [address] [place], [address], 07/17/2024 08:28:47 07/17/19 25 07/17/2024 COMP. METAB OLIC PANEL (14) albumin 4.5 g/dL 3.9-4. 9 Not Available [facility] ([facility]) [address] [place], [address], 07/17/2024 08:28:47 07/17/19 25 07/17/2024 COMP. METAB OLIC PANEL (14) globulin, total 2.7 g/dL 1.5-4. 5 Not Available [facility] ([facility]) [address] [facility] [place], [address], 07/17/2024 08:28:47 07/17/19 25 07/17/2024 COMP. METAB OLIC PANEL (14) bilirubin, total 0.6 mg/dL 0.0-1. 2 Not Available [facility] ([facility]) [address] [facility], [place], [address], 07/17/2024 08:28:47 07/17/19 25 07/17/2024 COMP. METAB OLIC PANEL (14) alkaline phosphatase 85 IU/L 44-121 Not Available [facility]) [address] [facility] [place], [address], 07/17/2024 08:28:47 07/17/19 25 07/17/2024 COMP. METAB OLIC PANEL (14) AST (SGOT) 18 IU/L 0-40 Not Available [facility] ([facility]) [address] [facility] [place], [address], 07/17/2024 08:28:47 07/17/19 25 07/17/2024 COMP. METAB OLIC PANEL (14) ALT (SGPT) 30 IU/L 0-32 Not Available [facility] ([facility]) [address] [place], [address], 07/17/2024 08:28:47 07/17/19 25 07/16/2024 HEMOG LOBIN A1C hemoglobin A1C 6.1 % 4.8-5. 6 above high normal Predi abete s: 5.7 - 6.4 Diabe leslie: >6.4 Glyce juni contr ol for adult s with diabe leslie: <7.0 Not Available [facility] ([facility]) [address] [place], [address], 07/17/2024 08:28:48 07/17/19 25 07/17/2024 VITAM IN B12 vitamin B12 1370 pg/mL 232-12 45 above high normal Not Available [facility] ([facility]) [address] [facility], [place], [address], 07/17/2024 08:28:49 07/17/19 25 07/16/2024 CBC WITH DIFFE RENTI AL/PL ATELE T WBC 3.9 x10e3 /uL 3.4-10 .8 Not Available [facility] ([facility]) [address] [facility], [place], [address], 07/17/2024 08:28:50 07/17/19 25 07/16/2024 CBC WITH DIFFE RENTI AL/PL ATELE T RBC 5.07 x10e6 /uL 3.77-5 .28 Not Available [facility] ([facility]) [address] [place], [address], 07/17/2024 08:28:50 07/17/19 25 07/16/2024 CBC WITH DIFFE RENTI AL/PL ATELE T hemoglobin 14.0 g/dL 11.1-1 5.9 Not Available [facility] ([facility]) [address] [place], [address], 07/17/2024 08:28:50 07/17/19 25 07/16/2024 CBC WITH DIFFE RENTI AL/PL ATELE T hematocrit 44.3 % 34.0-4 6.6 Not Available [facility] ([facility]) [address] [facility], [place], [address], 07/17/2024 08:28:50 07/17/19 25 07/16/2024 CBC WITH DIFFE RENTI AL/PL ATELE T MCV 87 fL 79-97 Not Available [facility] ([facility]) [address] [facility], [place], [address], 07/17/2024 08:28:50 07/17/19 25 07/16/2024 CBC WITH DIFFE RENTI AL/PL ATELE T MCH 27.6 pg 26.6-3 3.0 Not Available [facility] ([facility]) [address] [facility], [place], [address], 07/17/2024 08:28:50 07/17/19 25 07/16/2024 CBC WITH DIFFE RENTI AL/PL ATELE T MCHC 31.6 g/dL 31.5-3 5.7 Not Available [facility] ([facility]) [address] [facility], [place], [address], 07/17/2024 08:28:50 07/17/19 25 07/16/2024 CBC WITH DIFFE RENTI AL/PL ATELE T RDW 14.5 % 11.7-1 5.4 Not Available [facility] ([facility]) [address] [facility], [place], [address], 07/17/2024 08:28:50 07/17/19 25 07/16/2024 CBC WITH DIFFE RENTI AL/PL ATELE T platelets 196 x10e3 /uL 150-45 0 Not Available [facility] ([facility]) [address] [place], [address], 07/17/2024 08:28:50 07/17/19 25 07/16/2024 CBC WITH DIFFE RENTI AL/PL ATELE T neutrophils 44 % notest ab. Not Available [facility] ([facility]) [address] [place], [address], 07/17/2024 08:28:50 07/17/19 25 07/16/2024 CBC WITH DIFFE RENTI AL/PL ATELE T lymphs 49 % notest ab. Not Available [facility] ([facility]) [address] [facility], [place], [address], 07/17/2024 08:28:50 07/17/19 25 07/16/2024 CBC WITH DIFFE RENTI AL/PL ATELE T monocytes 5 % notest ab. Not Available [facility] ([facility]) [address] [facility], [place], [address], 07/17/2024 08:28:50 07/17/19 25 07/16/2024 CBC WITH DIFFE RENTI AL/PL ATELE T eos 1 % notest ab. Not Available [facility] ([facility]) [address] [facility], [place], [address], 07/17/2024 08:28:50 07/17/19 25 07/16/2024 CBC WITH DIFFE RENTI AL/PL ATELE T basos 1 % notest ab. Not Available [facility] ([facility]) [address] [place], [address], 07/17/2024 08:28:50 07/17/19 25 07/16/2024 CBC WITH DIFFE RENTI AL/PL ATELE T neutrophils (absolute) 1.7 x10e3 /uL 1.4-7. 0 Not Available [facility] ([facility]) [address] [place], [address], 07/17/2024 08:28:50 07/17/19 25 07/16/2024 CBC WITH DIFFE RENTI AL/PL ATELE T lymphs (absolute) 1.9 x10e3 /uL 0.7-3. 1 Not Available [facility] ([facility]) [address] [place], [address], 07/17/2024 08:28:50 07/17/19 25 07/16/2024 CBC WITH DIFFE RENTI AL/PL ATELE T monocytes(ab solute) 0.2 x10e3 /uL 0.1-0. 9 Not Available [facility] ([facility]) [address] [facility], [place], [address], 07/17/2024 08:28:50 07/17/19 25 07/16/2024 CBC WITH DIFFE RENTI AL/PL ATELE T eos (absolute) 0.0 x10e3 /uL 0.0-0. 4 Not Available [facility] ([facility]) [address] [place], [address], 07/17/2024 08:28:50 07/17/19 25 07/16/2024 CBC WITH DIFFE RENTI AL/PL ATELE T baso (absolute) 0.0 x10e3 /uL 0.0-0. 2 Not Available [facility] ([facility]) [address] [facility], [place], [address], 07/17/2024 08:28:50 07/17/19 25 07/16/2024 CBC WITH DIFFE RENTI AL/PL ATELE T immature granulocytes 0 % notest ab. Not Available [facility] ([facility]) [address] [facility], [place], [address], 07/17/2024 08:28:50 07/17/19 25 07/16/2024 CBC WITH DIFFE RENTI AL/PL ATELE T immature grans (abs) 0.0 x10e3 /uL 0.0-0. 1 Not Available [facility] ([facility]) [address] [place], [address], 07/17/2024 08:28:50 07/17/19 25 07/17/2024 FE+TI BC+FE R iron bind.cap.(TI BC) 339 ug/dL 250-45 0 Not Available [facility] ([facility]) [address] [facility], [place], [address], 07/17/2024 08:28:52 07/17/19 25 07/17/2024 FE+TI BC+FE R UIBC 225 ug/dL 118-36 9 Not Available [facility] ([facility]) [address] [facility], [place], [address], 07/17/2024 08:28:52 07/17/19 25 07/17/2024 FE+TI BC+FE R iron 114 ug/dL 27-139 Not Available [facility] ([facility]) [address] [place], [address], 07/17/2024 08:28:52 07/17/19 25 07/17/2024 FE+TI BC+FE R iron saturation 34 % 15-55 Not Available [facility]) [address] [place], [address], 07/17/2024 08:28:52 07/17/19 25 07/17/2024 FE+TI BC+FE R ferritin 218 NG/mL 15-150 above high normal Not Available [facility] ([facility]) [address] [place], [address], 07/17/2024 08:28:52 07/17/19 25 07/17/2024 VITAM IN D, 25-HY DROXY vitamin D, 25-hydroxy 48.0 NG/mL 30.0-1 00.0 Vitam in D defic iency has been defin ed by the Insti tute of Medic ine and an Endoc rine Socie ty pract ice guide line as a level of serum 25-OH vitam in D less than 20 ng/mL (1,2) . The Endoc rine Socie ty went on to furth er defin e vitam in D insuf ficie ncy as a level betwe en 21 and 29 ng/mL (2). 1. IOM (Inst itute of Medic ine). 2010. Dieta ry refer ence intak es for calci um and D. Sangeeta hope [place]: [facility] . 2. Purnima watson [place], Genevieve camara [place], Wisam off-F roney i CASTRO, et al. Evalu ation , treat ment, and preve ntion of vitam in D defic iency : an Endoc rine Socie ty clini luz marina pract ice guide line. JCEM. 2010; 96(7) :1911 -30. Not Available [facility] ([facility]) [address] [facility], [place], [address], 07/17/2024 08:28:53 Result Notes None recorded. Problems Name Problem SNOMED Code Status Onset Date Resolution Date Notes Provider Name and Address Organization Details Recorded Time Hyperlipidemia 71464430 Active 2023 Sabas Hodge MD Attn: Joel harrell,[address] [facility], [place], [address], [place] - [facility] 4 15:39:13 Prediabetes 112760127 Active 2023 Sabas Hodge MD Attn: Joel harrell,[address] [facility], [place], [address], [place] [facility] 4 15:39:15 Blood group typing Active 2023 Sabas Hodge MD Attn: Joel harrell,[address] [facility], [place], [address], [place] [facility] 4 15:39:16 Viral upper respiratory tract infection 444419718 Active 2023 Sukhi Cummins MD Attn: Joel harrell,[address] [facility], [place], [address], [place] [facility] 4 11:39:41 Obesity 555955368 Active 2023 Sukhi Cummins MD Attn: Joel harrell,[address] [facility], [place], [address], [place] [facility] 4 11:39:45 Problem Notes None recorded. Procedures Surgical History Date Name Laterality Status Provider Name and Address Organization Details Recorded Time 06/05/19 24 Most Recent Mammogram completed Areli Cantu RN [facility] 06/09/2023 16:49:07 05/16/19 24 screening for malignant neoplasm of colon completed Josh Pacheco MD Attn: Accounting, [address] [facility], [place], [address], [facility] [place]/31/2023 18:01:49 02/27/19 15 operation on breast completed Josh Pacheco MD Attn: Accounting, [address] [facility], [place], [address], [facility]/31/2023 18:04:24 02/27/19 08 Partial hysterectomy completed Teresa Thompson MA [facility] 07/26/2017 11:40:36 Cholecystectomy completed Teresa Thompson MA [facility] 07/26/2017 11:42:45 Tubal Ligation completed Teresa Thompson MA [facility] 07/26/2017 11:42:52 Imaging Results None recorded. Procedure Notes None recorded. Medical Equipment None Reported. Allergies Allergen ID Allergen Name Allergen Category Reaction Reaction Severity Criticality Documentation Date Start Date Code Code System Note Provider Name and Address Organization Details Recorded Time 719692 Product containin g penicilli n (product) medicatio n vomiting Not available Not available 07/26/2017 78724 8001 SNOMED MICHELL Choudhary [facility] 8 11:36:23 014504 amoxicill in medicatio n vomiting Not available Not available 07/26/2017 723 RxNorm MICHELL Choudhary [facility] 8 11:36:33 Medications Name Sig Start Date Stop Date Status Note LastModified by Organization Details LastModified Time cyclobenz aprine 10 mg tablet TAKE 1 TABLET BY MOUTH THREE TIMES A DAY NEEDED FOR MUSCLE SPASM 05/29 completed Not Available Not Available Not Available metformin 500 mg tablet TAKE 1 TABLET BY MOUTH TWICE A DAY 05/06 completed Not Available Not Available Not Available atorvasta tin 20 mg tablet Take 1 tablet every day by oral route for 30 days. 2024 active Not Available Not Available Not Avai lable clindamyc in HCl 300 mg capsule TAKE 1 TABLET BY MOUTH EVERY 8 HOURS FOR 7 DAYS 05/29 completed Not Available Not Available Not Available cetirizin e 10 mg tablet TAKE 1 TABLET BY MOUTH EVERY DAY FOR 30 DAYS 05/06 completed Patient is not taking. Not Available Not Available Not Available ibuprofen 800 mg tablet TAKE 1 TABLET BY MOUTH EVERY 8 HOURS WITH FOOD NEEDED 05/06 completed Not Available Not Available Not Available fluconazo le 150 mg tablet TAKE 1 TABLET BY MOUTH FOR 1 DOSE 11/15 completed Not Available Not Available Not Available metronida zole 0.75 % (37.5 mg/5 gram) vaginal gel 07/26 completed Not Available Not Available Not Available prednison e 20 mg tablet TAKE 1 TABLET BY MOUTH ONCE DAILY FOR 5 DAYS 05/06 completed Patient is not taking. Not Available Not Available Not Available clobetaso l 0.05 % topical cream 07/26 completed Not Available Not Available Not Available meclizine 12.5 mg tablet TAKE 1 TABLET BY MOUTH 3 TIMES A DAY NEEDED FOR DIZZINES S. 05/29 completed Not Available Not Available Not Available acetamino phen 300 mg-codein e 30 mg tablet 07/26 completed Not Available Not Available Not Available meclizine 25 mg tablet 07/26 completed Not Available Not Available Not Available benzonata te 100 mg capsule TAKE 1 CAPSULE BY MOUTH EVERY 8 HOURS NEEDED 01/12 completed Not Available Not Available Not Available pantopraz ole 40 mg tablet,de layed release TAKE 1 TABLET BY MOUTH EVERY DAY 05/29 completed Not Available Not Available Not Available nystatin 100,000 unit/gram topical cream APPLY TO AFFECTED AREA TWICE A DAY active Not Available Not Available No t Available codeine 10 mg-guaife nesin 100 mg/5 mL oral liquid TAKE 10 MILLILIT ERS BY ORAL ROUTE EVERY 8 HOURS NEEDED FOR COLD SYMPTOMS 01/12 completed Not Available Not Available Not Available ergocalci ferol (vitamin D2) 1,250 mcg (50,000 unit) capsule TAKE 1 CAPSULE BY MOUTH EVERY WEEK DIRECTED FOR 90 DAYS FOR VITAMIN D DEFICIEN CY 2024 active Not Available Not Available Not Avai lable clobetaso l 0.05 % topical ointment 01/12 completed Not Available Not Available Not Available irbesarta n 150 mg tablet TAKE 1 TABLET BY MOUTH EVERY DAY 2024 active Not Available Not Available Not Avai lable ibuprofen 600 mg tablet 01/12 completed Not Available Not Available Not Available Pepcid 20 mg tablet Take 1 tablet twice a day by oral route for 30 days. 05/06 completed Not Available Not Available Not Available methylpre dnisolone 4 mg tablets in a dose pack PLEASE SEE ATTACHED FOR DETAILED DIRECTIO NS 05/29 completed Not Available Not Available Not Available albuterol sulfate HFA 90 mcg/actua tion aerosol inhaler INHALE 2 PUFFS BY MOUTH EVERY 4 HOURS NEEDED 01/12 completed Not Available Not Available Not Available fluticaso ne propionat e 50 mcg/actua tion nasal spray,catrina pension SPRAY 1 SPRAY BY INTRANAS AL ROUTE EVERY DAY FOR 30 DAYS 05/06 completed Not Available Not Available Not Available tobramyci n 0.3 %-dexamet hasone 0.1 % eye drops,catrina pension 07/26 completed Not Available Not Available Not Available neomycin 3.5 mg/g-poly myxin B 10,000 unit/g-de xameth 0.1 % eye oint 07/26 completed Not Available Not Available Not Available multivita min 05/29 completed Not Available Not Available Not Available cholecalc iferol (vitamin D3) 1,250 mcg (50,000 unit) capsule TAKE 1 CAPSULE BY MOUTH ONE TIME PER WEEK 05/06 completed Not Available Not Available Not Available Vitals Date Recorded Body height Body mass index (BMI) Body weight Heart rate Systolic And Diastolic Provider Name and Address Organization Details Last Updated DateTime 05/06/2024 154.94 cm 30.4 kg/m2 82351.8 g 73 /min 132/82 mm[Hg] Cecelia Mendosa MA [place] [facility] 05/06/2024 10:28:09 Date Recorded Body height Body mass index (BMI) Body weight Heart rate Body temperature Respiratory rate Systolic And Diastolic Provider Name and Address Organization Details Last Updated DateTime 154.94 cm 30.5 kg/m2 09730.7 7 g 80 /min 98.3 [degF] 18 /min 130/80 mm[Hg] Chantell Gonzalez MA [facility] 5 09:32:27 Date Recorded Body height Body mass index (BMI) Body weight Systolic And Diastolic Provider Name and Address Organization Details Last Updated DateTime 08/12/2024 154.94 cm 30.3 kg/m2 84763.21 g 127/81 mm[Hg] Belkis Soler MA [facility] 08/12/2024 10:27:08 Date Recorded Body height Body mass index (BMI) Body weight Body temperature Respiratory rate Heart rate Systolic And Diastolic Provider Name and Address Organization Details Last Updated DateTime 4 154.94 cm 31.6 kg/m2 25926.7 3 g 97.6 [degF] 16 /min 76 /min 116/76 mm[Hg] Ivette Moore MA [facility] 4 16:12:24 Date Recorded Body height Body mass index (BMI) Body weight Body temperature Heart rate Respiratory rate Oxygen saturation Oxygen saturation in Arterial blood by Pulse oximetry Systolic And Diastolic Provider Name and Address Organization Details Last Updated DateTime 4 154.94 cm 30.8 kg/m2 73818.9 6 g 98.1 [degF] 71 /min 16 /min 96 % 96 % 147/85 mm[Hg] Ivette Moore MA [facility] 4 10:18:36 Social History Question Answer Notes LastModified by Organizat ion Details LastModified Time Tobacco Smoking Status Former Smoker Teresa Thompson MA null, [facility] 07/26/2017 11:40:15 Do You Have An Advance Directive? No Information n ot available 01/12/2022 Is Blood Transfusion Acceptable In An Emergency? Yes Information not available 01/12/2022 What Is Your Level Of Caffeine Consumption? Moderate Information not available 01/12/2022 In The 14 Days Before Symptom Onset, Have You Had Close Contact With A Laboratory-confirm ed COVID-19 While That Case Was Ill? No Information n ot available 01/12/2022 In The 14 Days Before Symptom Onset, Have You Had Close Contact With A Person Who Is Under Investigation For COVID-19 While That Person Was Ill? No Information not available 01/12/2022 Have You Been To An Area Known To Be High Risk For COVID-19? No Information not available 01/12/2022 What Type Of Diet Are You Following? REGULAR Information n ot available 01/12/2022 What Is The Highest Grade Or Level Of School You Have Completed Or The Highest Degree You Have Received? [id number] Information not available 01/12/2022 Have There Been Any Changes To Your Family Or Social Situation? No Information no t available 01/12/2022 What Was The Date Of Your Most Recent Tobacco Screening? 08/12/2024 Information not available 08/12/2024 How Many Children Do You Have? 4 Information not available 01/12/2022 Do You Have Any Pets? Yes Information not available 01/12/2022 Do You Use Protection During Sex? No Information not available 01/12/2022 What Is Your Relationship Status? Information not available 01/12/2022 Are You Sexually Active? Yes Information not available 01/12/2022 Do You Have Smoke And Carbon Monoxide Detectors In Your Home? Yes Information not available 01/12/2022 Are You Passively Exposed To Smoke? No Information no t available 01/12/2022 Do You Use Sunscreen Routinely? No Information not available 01/12/2022 Has Tobacco Cessation Counseling Been Provided? No Information not available 05/30/2023 On What Date Was Tobacco Cessation Counseling Provided? 08/12/2024 Information not available 08/12/2024 Sex: Female Functional Status Question Answer Note LastModified by Organizat ion Details LastModified Time Do you use any illicit or recreational drugs? No Information not available 01/12/2022 Do you or have you ever used any other forms of tobacco or nicotine? No etodaroma Information not available 06/07/2023 What is your level of alcohol consumption? None Information not available 01/12/2022 Are you currently employed? Yes Information not available 01/12/2022 What is your exercise level? None Information not available 01/12/2022 Mental Status Question Answer Note LastModified by Organization D etails LastModified Time Do you feel stressed (tense, restless, nervous, or anxious, or unable to sleep at night)? [id number] Information not available 01/12/2022 Family History Relationship Description Onset Age of this Age Resolved Age Notes LastModified by Organization Details LastModified Time Mother Hypertensive disorder [email or web address] Not available 15:46:11 Notes:07/31/23, 11/16/23, Medical History Condition Response Anxiety Disorder N Have you had a mammogram in the last yea r? N Breast Problem N High Blood Pressure Y Anemia N Have you had a colonoscopy in the last 1 0 years? Y High Cholesterol Y Headaches/Migraines N Depression N Gynecological History Statement/Question Response Abnormal Pap N Sexually Active? Y STIs/STDs N Date of Last Pap Smear Sexual Problems? N Age at Menarche 13 Current Control Method Hysterectom y Most Recent Mammogram 06/05/2023 Age at First Child 22 LMP Obstetrics History GPAL:G 4 P 4 0 0 4 Type Value Full Term 4 Living 4 Total 4 Immunizations Vaccine Type Date Status Note Provider Nam e and Address Organization Details Recorded Time Tdap 1 completed FARRUKH RUDOLPH MD Attn: Accounting[address] [place], [address], [facility] 06/07/2023 10:21:56 Td (adult), 5 Lf tetanus toxoid, preservative free, adsorbed 4 completed FARRUKH RUDOLPH MD Attn: Accounting[address] [place], [address], [facility] 06/07/2023 10:21:56 COVID-19, mRNA, LNP-S, PF, 100 mcg/0.5mL dose or 50 mcg/0.25mL dose 1 completed FARRUKH RUDOLPH MD Attn: Accounting[address] [facility], [place], [address], [place] [facility] 06/07/2023 10:22:06 COVID-19, mRNA, LNP-S, PF, 100 mcg/0.5mL dose or 50 mcg/0.25mL dose 1 completed FARRUKH RUDOLPH MD Attn: Accounting[address] [facility], [place], [address], [place] [facility] 06/07/2023 10:22:06 COVID-19, mRNA, LNP-S, PF, 100 mcg/0.5mL dose or 50 mcg/0.25mL dose 1 completed FARRUKH RUDOLPH MD Attn: Accounting[address] [facility], [place], [address], [place] [facility] 06/07/2023 10:22:06 Past Encounters Encounter ID Performer Location Encounter Start Date Encounter Closed Date Diagnosis/Indication Diagnosis SNOMED-CT Code Diagnosis ICD10 Code Diagnosis Note [id number] MD Nhi Madsen 14 OB 4 [facility] [place] [address] 07/26/2017 11:04:32 07/26/2017 16:05:11 Vaginal discharge problem 431508804 N89.9 [id number] MD Nhi Madsen 14 OB 4 [facility] [place] [address] 01/07/2020 15:23:58 01/08/2020 11:41:24 Gynecologic examination 25202338 Z01.419 CBE and pelvic exam performed Screening mammography 24 097408 Z12.31 [id number] MILA [facility] [facility] [address] [place] [address] 01/30/2020 09:47:55 01/31/2020 06:51:50 Viral screening 426203278 Z11.59 Viral syndrome 648433731 B34.9 Coronavirus infection 18 8635452 B34.2 [id number] KARISSA [facility] [place] [address] [place] [address] 03/02/2020 12:11:16 03/03/2020 08:49:11 Viral screening 074964825 Z11.59 Viral syndrome 235269455 B34.9 [id number] MD Nhi Madsen 14 OB 4 [facility] [place] [address] 03/31/2021 07:30:56 04/02/2021 03:46:22 Screening mammography 02827730 Z12.31 [id number] MD Nhi Madsen 14 OB 4 [facility] [place] [address] 01/12/2022 08:54:59 01/13/2022 14:36:35 Malaise and fatigue 702216748 R53.83 Gynecologi c examination 27503319 Z01.419 CBE and pelvic exam performed [id number] MD Nhi Madsen 14 OB 4 [facility] [place] [address] 05/30/2023 15:19:31 06/01/2023 13:18:12 Screening mammography 53719477 Z12.31 Gynecologi c examination 70075044 Z01.419 --CBE and pelvic exam performed- -cologuard performed 2 weeks ago Depression screening 171 017653 Z13.31 --PHQ9=1 Essential hypertension 19542976 I10 Obesity 978695256 E66.9 [id number] MD Nhi CRUZ 14 IM 4 [facility] [place] [address] 06/07/2023 09:23:36 06/14/2023 15:04:11 Essential hypertension 45881429 I10 BPs seem to be under control with Irbesartan 150 mg. Obesity 955969328 E66.9 Discussed lifestyle modificati ons including diet and exercise.- Will get baseline A1c and lipid panel. Lightheadedness 87977979 8 R42 Differenti als include anemia, thyroid pathology, electrolyt e imbalances , orthostasi s.Orthosta tic vitals performed in office and were negative.- BW ordered to assess further with CBC, TSH, CMP HIV screening 198055673 Z11.4 [id number] MD Nhi Cox [address] [place] [address] 07/31/2023 15:09:37 08/02/2023 09:57:25 Hyperlipidemia 13555407 E78.5 ASCVD risk 8.2%; Intermedia te risk Recommend moderate intensity statin (atorvasta tin 20 mg).Discus sed risks and benefits for medication s.Patient is agreeable Prediabetes 698305054 R7 3.03 Offered metformin along with counsellin g on lifestyle modificati ons including diet and exercise. Patient is unsure about starting medication s. would like to have Rx sent, and will decide later if she wants to take them or not. 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 Blood group typing 07783 003 Z01.83 Patient was also concerned about her blood group and type. Would like to find it out. [id number] MD Nhi Zepeda 14 IM 4 [facility] [address] [place] [address] 11/16/2023 15:52:19 11/23/2023 11:16:22 Obesity 101456904 E66.8 Discussed lifestyle modificati ons including diet and exercise. Prediabetes 983945165 R7 3.03 Chronic. Stable.POC A1c today - 5.9, slightly improved since 06/07/23 (6.0) Discussed multiple options for treatment including metformin and healthy lifestyle. -Patient thinking about starting metformin- 3 month follow up Fatigue 90197085 R53.83 ESS - 10; excessivel y sleepySTOP -BANG - 4 intermedia te risk for RYAN Recent labs unrevealin g of cause. 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 [id number] MD Nhi Singleton 14 IM 4 [facility] [address] [place] [address] 01/31/2024 10:03:51 02/07/2024 12:28:02 Obesity 877549440 E66.9 Viral uppe r respiratory tract infection 348659967 J06.9 Sore throat, congestion , rhinorrhea , dry cough for 6 days. No fever, chills, N/V, diarrhea, malaise. No sick contacts. Minimal smoke exposure at home.DDX: allergic rhinitis, viral sinusitis, bacterial sinusitis, URI, strep throatMost likely: viral sinusitisN egative for strep, COVID, and flu in officePlan :- Start Chlorosept ic spray PRN for sore throat- Start oral antihistam ine Keiko or Claritin- Flonase spray PRN for congestion - Ibuprofen/ Tylenol PRN for pain- Continue with fluids and supportive care- Return to clinic if symptoms continue longer than 2 weeks [id number] MD Nhi Madsen 14 OB 4 [facility] [address] [place] [address] 05/06/2024 10:13:50 05/13/2024 08:21:56 Screening mammography 15419024 Z12.31 Gynecologi c examination 19725440 Z01.419 --pelvic exam performed Candidiasis of skin 4988 3006 B37.2 Obesity 831025823 E66.9 Depression screening 171 318840 Z13.31 --PHQ9=1 [id number] MD Nhi Zepeda 14 IM 4 [facility] [address] [place] [address] 07/16/2024 09:17:53 07/17/2024 12:05:10 Obese class I 1923438281 47461 E66.811 Chronic, uncontroll ed Positive s creening for depression on PHQ-9 (Patient Health Questionnaire 9) 8259647593 87321 Z13.31 score = 7 Prediabetes 489259454 R7 3.03 Chronic, uncontroll ed- Order HbA1c test- Dietary and exercise education Hyperlipidemia 91394022 E78.5 Chronic, uncontroll ed- C/W Atorvastat in 20mg Daily- Order lipid panel- Dietary counseling : reduce saturated fats, increase fiber Fatigue 43968972 R53.83 Chronic, uncontroll ed- Order CBC, vitamin levels, iron studies, thyroid tests- High-dose weekly vitamin D supplement - Consider B-complex vitamin Essential hypertension 72668430 I10 Chronic, stable- C/W Irbesartan 150mg- Daily home blood pressure monitoring - Encourage hydration- Order comprehens anisa metabolic panel Vitamin D deficiency 347 62295 E55.9 Chronic, uncontroll ed Cancer cer vix screening status 661333991 Z12.4 Discussed with patient on need to complete with Dr. Pacheco Screening for malignant neoplasm of colon 182410318 Z12.11 - Sent Cologuard Flexural eczema 37083836 L20.82 Chronic, stable- Avoid irritants- Topical steroids- Regular moisturizi ng Constipation 88201092 K5 9.09 Acute, uncomplica carlotta- Increase fluid intake- Dietary modificati ons: prunes, MiraLax [id number] MD Nhi Madsen 14 OB 4 [facility] [place] [address] 08/12/2024 10:11:22 08/13/2024 15:43:06 Screening mammography 91415446 Z12.31 --Pt referred to [facility] for mammogram Gynecologi c examination 42499833 Z01.419 --pelvic exam performed- -s/p hysterecto my secondary to AUB Obese class I 6060742918 13374 E66.811 Health Concerns Section Related Observation LastModified by Organization Detai ls LastModified Time None Recorded Concern Status LastModified by Organization Details LastModified Time None Recorded Advance Directives Directive N: Payers Insurance Date Sequence Insurance Name Policy Number Policy Romero Covered Member ID Romero Member ID Guarantor Name 11/16/2023 2 [place] Raiza Joesph [id number] [facility] 11/16/2023 1 [facility] (PPO) [id number] Raiza Joesph [id number] [facility] 11/16/2023 1 [place] [id number] Raiza Joesph [id number] [facility]/16/2023 1 [place] [id number] Raiza Joesph [id number] [facility] 11/16/2023 1 [place] [id number] Raiza Joesph [id number] [facility] 11/16/2023 COVID19 [employer] [employer] Raizasravani Rivaser [id number] Raiza Joesph 07/16/2024 SLIDING FEE SCHEDULE - DISCOUNT Raiza Rivaser 05/15/2023 1 *SELF PAY* Susanne Pink 05/06/2024 2 [facility] (PPO) [id number] Raiza Pink [id number] Raiza Pink 06/07/2023 SLIDING FEE SCHEDULE - DISCOUNT Raiza Pink 07/16/2024 SLIDING FEE SCHEDULE - DISCOUNT Raiza Pink 05/06/2024 2 [facility] - [employer] (PPO) Raiza Pink [id number] Raiza Pink 11/16/2023 1 [facility] (MEDICARE REPLACEMENT/ADVA NTAGE - HMO) Raiza Pink [id number] Raiza Pink 11/16/2023 1 [facility] (PPO) [id number] Raiza Pink [id number] Raiza Pink Notes Date Note Type Note Provider Name and Address Organization Details Recorded Time 11/16/2023 text/html Ms. Raiza new is a 62 y/o F presenting to the clinic for 3 month follow up of her prediabetes. PrediabetesLast A1c - 6.0 (06/07/23). Rx for metformin was sent, however patient has not started taking medications. Denies significant changes to lifestyle. Addy also has c/o cough and runny nose for the past 2 weeks. She does endorse a sore throat. The cough is non productive. Coughing through out the day. More so at night. Dry cough. Also having sneezing. Also feeling tired, and fatigued. She denies recent sick contacts. Has been taking theraflu, and bethany seltzer cold with improvement. No history of allergies. Denies post nasal drip. Denies heart burn. Chest bryan when she coughs. denies congestion. Denies history of asthma.Non smoker. SO and son smoke outside the house. Denies fevers, chills. Denies wheezing or dyspnea. Denies chest pain. FatigueAlso c/o feelings of fatigue. Reports having a good night sleep. Denies issues with falling asleep. goes to sleep at around 7-8 pm. Falls asleep pretty quickly when in bed. Sleeps with the TV on. She has to get out of bed at least 3 times in the night to go to the bathroom.ESS - 10; excessively sleepySTOP-BANG - 4 intermediate risk for RYAN Jeffrey Pollock MD Attn: [address] [place], [address], [facility] 11/21/2023 11:15:01 01/31/2024 text/html 63 year old fema le with pmh of HTN, HLD, prediabetes presenting with sore throat. The day after thanks, she started having rhinorrhea and congestion that has gotten progressively worse. Now she has postnasal drip, dry cough, and a sore throat. Cough and sore throat is worse at night. She has taken Theraflu, [place], Flonase, lozenges with transient relief. She reports no fever, chills, malaise, muscle aches, chest pain, dyspnea, nausea, vomiting, diarrhea, or constipation. No sick contacts, but she was around a lot of people for Cynthia. She reports that she normally does not have problems with congestion. No recent illnesses or seasonal allergies that she knows of. Emilie Velazquez MD Attn: [address]ing[address] [place], [address], [facility] 02/06/2024 11:35:38 05/06/2024 text/html Patient presents with the complaint of skin irritation along her panty line and at the inferior portion of her perineum. She states that the area is sometimes itchy but denies any pain. Josh Pacheco MD Attn: [address]ing[address] [place], [address], [facility] 05/06/2024 11:18:10 07/16/2024 text/html 63 yo F RYAN OB Hx3 SVDs and 1 C/SPartial hysterectomy - 2008Last PAP not on file Cervical Cancer Screening Colonoscopy - previous polyp Fatigue Last Mammogram Chief Complaint Fatigue, occasional dizziness, headaches, blurry vision, constipation, frequent urination, anxiety, memory concerns History of Present Illness 63 yo F with PMH of hypertension, hyperlipidemia, prediabetes, vertigo, and partial hysterectomy who presents with: Dizziness Patient reports experiencing occasional dizziness, particularly when standing up quickly, which she attributes to a previous diagnosis of vertigo. Fatigue She reports feeling fatigued, which prompted a previous recommendation for a sleep study that was not pursued due to financial constraints. Headaches and Vision The patient describes experiencing headaches, which she believes may be related to fasting. She reports occasional blurry vision, which may be attributed to developing cataracts. Respiratory Symptoms She mentions a chronic cough, which she suspects might be allergy-related. Gastrointestinal Symptoms She reports constipation with sometimes hard stools. Urinary frequency is noted, especially at night. Skin Condition The patient has a history of eczema. Cognitive Concerns The patient expresses concern about her memory, stating that she finds herself not remembering everything like you used to, and forgetting a lot. This is causing her some worry, although she denies any family history of Alzheimer's disease. Psychosocial Concerns The patient reports experiencing anxiety due to family issues, including a daughter in residential and a son dealing with loss. She also mentions struggling with her eating habits, particularly with fried foods, salt, sweets, ice cream, and chocolate cupcakes. The patient acknowledges difficulty controlling her intake of these foods, stating, I can't really keep anything in my house. If it's there, I'm gonna eat it. The patient denies any chest pain, heart racing, sore throat, nausea, vomiting, seizures, numbness, or tingling. She reports adherence to her current medications, including amlodipine for hypertension and atorvastatin for hyperlipidemia, with no reported side effects. Medical History - Vertigo - Prediabetes - Hyperlipidemia - Hypertension - Fatigue - Anxiety related to family issues Surgical History - Partial hysterectomy in 2007 - Tubal ligation after of last child - section for last child due to placental abruption - Gallbladder removal at age 26 - Breast procedure for non-cancerous leakage, treated by oncologist Medications and Supplements - Amlodipine - For high blood pressure - Atorvastatin - For cholesterol - Taking for a while without problems - Vitamin D - Omsd-hht-qyvjhxi daily supplement - Women's vitamin (50 and above) - Chewable gummies - Inez-Crow Allergies - Possible seasonal allergies (mentioned cough that could be allergy-related) Social History - Diet: Reports consuming fried food, salt, sweets, ice cream, and chocolate cupcakes - Family Structure: Has 4 children - Stress: Experiencing anxiety due to family issues, including a daughter in residential and a son dealing with loss - Exercise: Advised to stay active, walk, and do light weight lifting for bone health - Substance Use: No tobacco, alcohol, or recreational drug use mentioned Review of Systems General: Positive for fatigue. HEENT: Positive for blurry vision, headaches. Negative for sore throat. Cardiovascular: Positive for dizziness upon standing. Negative for chest pain, heart racing. Respiratory: Positive for cough. Gastrointestinal: Positive for constipation, hard stools. Negative for nausea, vomiting. Genitourinary: Positive for frequent urination, especially at night. Skin: Positive for eczema. Neurological: Negative for seizures, numbness, tingling. Psychiatric: Positive for anxiety. 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 Post-MenopausalRepor carlotta bypatient.Menopausal Symptoms:no menopausal symptoms; normal vaginal lubrication Vaginal Bleeding:history of menopause having occurred; no history of post menopausal bleeding Urinary Symptoms:no hematuria; no incontinence; no nocturia; no urinary frequency Vulva:no genital lesion; no vulvar atrophy Vagina:normal vaginal discharge; no vaginal atrophy Breast:no breast lump; no nipple discharge; no breast pain Sexual Complaints:no sexual complaints Psychological Symptoms:no depression; no anxiety Josh Pacheco MD Attn: [address]ing[address] [place], [address], [facility] 08/12/2024 18:06:56 OBGyn Episode No OBEpisode recorded.
--- OUTSIDE RECORDS SUMMARY | 2024-09-14 05:54 | XMS_ITS | Clinical Summary ---
Author Organization [facility] Address [address] [place] [address] Care Team Providers Care Wire Web Worker Name Role Phone Katharine Negro MD Primary [...] MSK Holter monitor unremarkable She went to [place] and had ct of the chest which [...] Assessment & Plan (11/23/2020 9:26 AM CDT): [place] hallpike negative,Orthostatics negative in office Did Meagan [...] (12/11/2019): Added automatically from request for surgery [id number] Resolved Problems Problem Noted Date Diagnosed Date Resolved Date Screen for colon cancer 12/11/201910/29 Overview (12/11/2019): Added automatically from request for surgery [id number] Immunizations Immunization Administration Dates Next Due Influenza, Unspecified 09/06/2022(Deferr ed: Patient Refused),05/23/2022(Deferred: Patient Refused),02/27/2022(Deferred: Patient Refused),09/27/2021(Deferred: Patient Refused),11/23/2020(Deferred: Patient Refused),11/09/2020(Deferred: Patient Refused),09/27/2020(Deferred: Patient Refused),11/28/2019(Deferred: Patient Refused),09/28/2019(Deferred: Patient Refused) TD Preservative Free 02/23/2004 Tdap 11/09/2020 Surgical History Surgery Date Site/Laterality Comments COLONOSCOPY 5-7 yrs ago TUBAL LIGATION Bilateral PARTIAL HYSTERECTOMY As per pt, done for irregular cycles OTHER SURGICAL HISTORY removal of tumor behind eye CHOLECYSTECTOMY HERNIA REPAIR Medical History Medical History Date Comments Colon polyp Hypertension Family History Medical History Relation Name Comments Hypertension Mother Cancer Sister by the time she went to the doctor the cancer had spread everywhere. Unsure of origin. Heavy drinker Relation Name Status Comments Mother Sister Social History Tobacco Use Types Packs/Day Years [...] on file Sexual Orientation Not on file Obstetrics History Last Filed Vital Signs Vital Sign Reading [...] 09/06/2022 3:51 PM CDT Plan of Treatment Health Maintenance Due Date Last Done Comments Osteoporosis Screening-Bone Density Scan 1960 Hepatitis B Screening 11/23/1979 Zoster Vaccine (1 of 2) 11/23/2011 Regular Well Visit/Exam 18-64 11/09/2021 11/09/2020 Breast Cancer Screening-Mammogram 06/18/2022 06/18/2021 Depression Screening 09/07/2023 09/06/2022, 05/23/2022, 06/17/2021, Additional history exists Covid-19 Vaccine ( season) 2023 02/16/2021, 06/19/2020, 05/22/2020 Influenza Vaccine (#1) 2024 Colon Cancer Screening-Colonoscopy 12/26/2024 12/27/2019 DTaP/Tdap/Td Vaccine (2 - Td or Tdap) 11/09/2030 11/09/2020, 02/23/2004 Hepatitis C Screening Completed 11/12/2020 Pneumococcal vaccine <65 Aged Out No longer eligible based on patient's age to complete this topic Procedures Procedure Name Priority Date/Time Associated Diagnosis [...] Lemus MD - 12/27/2019 10:56 AM CDT [facility] Patient Name: Raiza Pink Procedure Date: 12/27/2019 10:56AM Date of : 1960 Admit Type: Outpatient Age: 59 Gender: Female Attending MD: Ben Lemus M.D. Room: [facility] ENDOSCOPY ROOM 2 Note Status: Finalized Patient [...] scope was passed under direct vision.The Colonoscope [id number] was introducedthrough the anus and advanced to [...] 10:56 AM Procedure Code(s): --- Professional --- 27879, Colonoscopy, flexible; with removal of tumor(s), polyp(s), or other lesion(s) by hot biopsy forceps 91906, 59, Colonoscopy, flexible; with biopsy, single or multiple Diagnosis Code(s): --- Professional --- K57.30, Diverticulosis of large intestine without perforation orabscess without bleeding K62.1, Rectal polyp D12.5, Benign neoplasm of sigmoid colon K64.9, Unspecified hemorrhoids Z86.010, Personal history of colonic polyps CPT copyright 2017 [employer]. All rights reserved. The codes documented in this report are preliminary and upon data modeler reviewmay be revised to meet current compliance requirements. Recognized by the [place] [employer] for promoting quality in endoscopy us Ben Lemus MD ENDOSCOPY PROCEDURES Final Re sult from Last 3 Months or Most Recently Relevant to Health Maintenance Insurance AETNA SIG [id number] [place] BREAST AND CERVICAL CANCER PROGRAM GOVERNMENT Advance Directives For more information, please contact: [phone] * Full Code (Latest Code Status on File) Date Activated Date Inactivated Comments 12/27/2019 10:05 AM 12/27/2019 4:24 PM Care Teams Wire Web Worker Relationship Specialty Start Date End Date Katharine Negro MD [address] [place] [address] PCP - General Family Medicine 05/17/22
--- NOTE | 2024-09-14 06:02 | ECG_ITS ---
Test Date: 2024-09-14 06:12:54 Measurements Intervals [place] Rate: 75 P: 55 IN: 201 QRS: 1 QRSD: 79 T: 43 QT: 387 QTc: 433 Interpretive Statements SINUS RHYTHM NORMAL ECG No previous ECG available for comparison Electronically Signed On 09-14-2024 08:56:06 CDT by Akin Lindsey M.D.
[2024-09-14 06:24] LABS: Hematocrit 38.0 % (37.0-47.0); Hemoglobin 12.3 g/dL (12.0-15.0); Immature Granulocyte Percent A 0.2 % (0-0.5); Lymphocytes Absolute Auto 1.99 K/mm3 (0.9-3.2); Mean Corpuscular HGB Conc 32.4 g/dl (32-36); Mean Corpuscular Hemoglobin 27.8 pg (26-34); Mean Corpuscular Volume 85.8 fl (80-100); Nucleated Red Blood Cells Absolute Auto 0.000 K/mm3 (0.0-0.012); Nucleated Red Blood Cells Perc 0.0 % (0.0-0.2); Platelet Count Result 186 k/mm3 (150-375); Red Blood Count 4.43 M/mm3 (4.2-5.4); White Blood Count 5.8 K/mm3 (4.5-10.0)
[2024-09-14 06:40] LABS: Alanine Aminotransferase 39 U/L (6-35); Albumin Level 3.9 g/dL (3.5-5.1); Alkaline Phosphatase 90 U/L (38-126); Anion Gap 8 mmol/L (4-12); Aspartate Amino Transferase 34 U/L (14-36); Bilirubin,Total 0.7 mg/dL (0.2-1.3); Blood Urea Nitrogen 9 mg/dL (7-17); Calcium 9.5 mg/dL (8.4-10.2); Carbon Dioxide 25 mmol/L (22-30); Chloride 108 mmol/L (98-107); Estimated CRCL calculation 54 ml/min; Estimated Glomerular Filt Rate > 60; Glucose 113 mg/dL (65-110); Potassium 3.9 mmol/L (3.4-5.0); Sodium 141 mmol/L (137-145); Total Protein 7.2 g/dL (6.3-8.2)
--- OUTSIDE RECORDS SUMMARY | 2024-09-14 07:31 | XMS_ITS | Clinical Summary ---
Author Organization [facility] Address [address] [place] [address] Care Team Providers Care Mold Stripper Name Role Phone Yousuf Blair MD Primary Care Provider [phone] Source Comments [facility],non-owned Affiliates and Associated Physician Practices is amultiple site organization consisting of ambulatory clinics and hospital sitesin [place], [place], [place] and [place]. This disclosure is being madepursuant to the Care Everywhere program and may not contain all information available regarding this patient. Last updated 17.[facility] Allergies Active Allergy Reactions Criticality Noted Date [...] on file Legal Sex Female 6:29 AM HOME ECONOMICS EXTENSION WORKER Gender Identity Not on file Sexual Orientation Not on file Last Filed Vital Signs Vital Sign Reading Time Taken Comments Blood Pressure 125/75 03/20/2018 8:55 AM HOME ECONOMICS EXTENSION WORKER Pulse 69 03/20/2018 8:55 AM HOME ECONOMICS EXTENSION WORKER Temperature 36.9 C (98.5 F) 03/20/2018 8:25 AM HOME ECONOMICS EXTENSION WORKER Respiratory Rate 18 03/20/2018 8:55 AM HOME ECONOMICS EXTENSION WORKER Oxygen Saturation 97% 03/20/2018 8:55 AM HOME ECONOMICS EXTENSION WORKER Inhaled Oxygen Concentration - - Weight 72.6 kg (160 lb) 03/20/2018 6:46 AM HOME ECONOMICS EXTENSION WORKER Height 154.9 cm (5' 1) 03/20/2018 6:46 AM HOME ECONOMICS EXTENSION WORKER Body Mass Index 30.23 03/20/2018 6:46 AM HOME ECONOMICS EXTENSION WORKER Plan of Treatment Health Maintenance Due Date [...] complete this topic Insurance ANTHEM ANTHEM [facility] Address: [place] [address] ANTHEM Advance Directives * Full Code (Latest Code Status on File) Date Activated Date Inactivated Comments 03/20/2018 6:43 AM 03/20/2018 10:15 AM Care Teams Mold Stripper Relationship Specialty Start Date End Date Yousuf Blair MD [address] [place] [address] PCP - General 09/03/10
--- OUTSIDE RECORDS SUMMARY | 2024-09-14 07:31 | XMS_ITS | Clinical Summary ---
Author Organization [facility] Address [address] [place] [address] Care Team Providers Care Lye Boiler Name Role Phone Katharine Negro MD Primary [...] MSK Holter monitor unremarkable She went to [place] and had ct of the chest which [...] Assessment & Plan (11/23/2020 9:26 AM CDT): [place] hallpike negative,Orthostatics negative in office Did Meagan [...] (12/11/2019): Added automatically from request for surgery [id number] Resolved Problems Problem Noted Date Diagnosed Date Resolved Date Screen for colon cancer 12/11/201910/29 Overview (12/11/2019): Added automatically from request for surgery [id number] Immunizations Immunization Administration Dates Next Due Influenza, [...] Region Laterality Modality Other Narrative Procedure Note eBn Lemus MD - 12/27/2019 10:56 AM CDT [facility] Patient Name: Raiza Pink Procedure Date: 12/27/2019 10:56AM Date of : 1960 Admit Type: Outpatient Age: 59 Gender: Female Attending MD: Ben Lemus M.D. Room: [facility] ENDOSCOPY ROOM 2 Note Status: Finalized Patient [...] scope was passed under direct vision.The Colonoscope [id number] was introducedthrough the anus and advanced to [...] 10:56 AM Procedure Code(s): --- Professional --- 14641, Colonoscopy, flexible; with removal of tumor(s), polyp(s), or other lesion(s) by hot biopsy forceps 77920, 59, Colonoscopy, flexible; with biopsy, single or multiple Diagnosis Code(s): --- Professional --- K57.30, Diverticulosis of large intestine without perforation orabscess without bleeding K62.1, Rectal polyp D12.5, Benign neoplasm of sigmoid colon K64.9, Unspecified hemorrhoids Z86.010, Personal history of colonic polyps CPT copyright 2017 [place] [employer]. All rights reserved. The codes documented in this report are preliminary and upon cellophane worker reviewmay be revised to meet current compliance requirements. Recognized by the [place] [employer] for promoting quality in endoscopy us Ben Lemus MD ENDOSCOPY PROCEDURES Final Re sult from Last 3 Months or Most Recently Relevant to Health Maintenance Insurance AETNA SIG [id number] [place] BREAST AND CERVICAL CANCER PROGRAM GOVERNMENT Advance Directives For more information, please contact: [phone] * Full Code (Latest Code Status on File) Date Activated Date Inactivated Comments 12/27/2019 10:05 AM 12/27/2019 4:24 PM Care Teams Lye Boiler Relationship Specialty Start Date End Date Katharine Negro MD [address] [place] [address] PCP - General Family Medicine 05/17/22
--- OUTSIDE RECORDS SUMMARY | 2024-09-14 07:31 | XMS_ITS | Clinical Summary ---
Author Organization [facility] Care Team Providers Care Aircraft Assembler Name Role Phone Unavailable Primary Care Provider [...]
--- OUTSIDE RECORDS SUMMARY | 2024-09-14 07:31 | XMS_ITS | Referral Summary ---
Author Organization [facility] Address [address] [place] [address] Care Team Providers Care Seaming Inspector Name Role Phone Katharine Negro MD Primary [...] MSK Holter monitor unremarkable She went to [place] and had ct of the chest which [...] Assessment & Plan (11/23/2020 9:26 AM CDT): [place] hallpike negative,Orthostatics negative in office Did Meagan [...] (12/11/2019): Added automatically from request for surgery [id number] Resolved Problems Problem Noted Date Diagnosed Date Resolved Date Screen for colon cancer 12/11/201910/29 Overview (12/11/2019): Added automatically from request for surgery [id number] Immunizations Immunization Administration Dates Next Due Influenza, [...] Lemus MD - 12/27/2019 10:56 AM CDT [facility] Patient Name: Raiza Pink Procedure Date: 12/27/2019 10:56AM Date of : 1960 Admit Type: Outpatient Age: 59 Gender: Female Attending MD: Ben Lemus M.D. Room: [facility] ENDOSCOPY ROOM 2 Note Status: Finalized Patient [...] scope was passed under direct vision.The Colonoscope [id number] was introducedthrough the anus and advanced to [...] 10:56 AM Procedure Code(s): --- Professional --- 69947, Colonoscopy, flexible; with removal of tumor(s), polyp(s), or other lesion(s) by hot biopsy forceps 05849, 59, Colonoscopy, flexible; with biopsy, single or multiple Diagnosis Code(s): --- Professional --- K57.30, Diverticulosis of large intestine without perforation orabscess without bleeding K62.1, Rectal polyp D12.5, Benign neoplasm of sigmoid colon K64.9, Unspecified hemorrhoids Z86.010, Personal history of colonic polyps CPT copyright 2017 [employer]. All rights reserved. The codes documented in this report are preliminary and upon blue line trimmer reviewmay be revised to meet current compliance requirements. Recognized by the [employer] for promoting quality in endoscopy Ben Lemus MD ENDOSCOPY PROCEDURES Final Re sult from Last 3 Months or Most Recently Relevant to Health Maintenance Insurance [place] BREAST AND CERVICAL CANCER PROGRAM GOVERNMENT Advance Directives For more information, please contact: [phone] * Full Code (Latest Code Status on File) Date Activated Date Inactivated Comments 12/27/2019 10:05 AM 12/27/2019 4:24 PM Care Teams Seaming Inspector Relationship Specialty Start Date End Date Katharine Negro MD [address] [place] [address] [place] [address] PCP - General Family Medicine 05/17/22
[2024-09-14] MEDS: ACETAMINOPHEN 500 MG TABLET 1000 MG PO (07:38)
--- NOTE | 2024-09-14 07:38 | ED.GENADULT ---
HPI - General Adult General Chief complaint: Shortness of Breath/Dyspnea Stated complaint: SOB, cough Time Seen by Provider: 09/14/24 06:56 History of Present Illness HPI narrative: This 63-year-old female presenting with cough. Symptoms started 5 days ago. Cough is dry. Associated with throat irritation. She has coughing the inspiration. She then developed chest pain but only when coughing. Associated symptoms include headache.. She has not had any fevers/chills, shortness of breath abdominal pain nausea vomiting or diarrhea. He has been taking [id number] medications relief. Related Data Allergies Allergy/AdvReac Type Severity Reaction Status Date / Time meclizine Allergy Unknown Unknown Verified 09/14/24 06:08 Penicillins Allergy Unknown Unknown Verified 09/14/24 06:08 amoxicillin AdvReac Mild NAUSEA Verified 09/14/24 06:08 PMFSH Past Medical History Medical History Fibroids GERD (gastroesophageal reflux disease) Left hip pain Hypertension H/O benign neoplasm of eye Surgical History Surgical History History of tubal ligation History of partial hysterectomy History of cholecystectomy Family History Family History Unknown No family history of disorders Social History Social History Smoking status: Former smoker Second hand tobacco smoke exposure: No Smoking end date: 02/27/91 Alcohol intake: never Substance use: never Substance use type: does not use Living arrangements: with friend(s) Additional living arrangements comments: Adult children live with the pt at her home. Occupation/Education: occupation Gender identity (if verbalized by the patient): Female Spiritual care concerns: Yes Agree to blood products: Yes Exam Narrative: APPEARANCE: No apparent distress. Well-appearing Head: atraumatic. EYES: EOMI, NOSE: Atraumatic NECK: Trachea midline RESPIRATORY: No increased rate of breathing clear to auscultation, speaking full sentences, 100% room air CARDIOVASCULAR: RRR, no peripheral edema ABDOMINAL: Non-distended soft nontender MUSCULOSKELETAl: No obvious deformities NEURO: Alert. Moving 4/4 extremities SKIN:: Warm, dry. Normal color PSYCHIATRIC: Normal affect Course Vital Signs Vital signs: Vital Signs Temperature 98.4 F 09/14/24 06:04 Pulse Rate 78 09/14/24 06:04 Respiratory Rate 18 09/14/24 06:04 Blood Pressure 104/78 09/14/24 06:04 Pulse Oximetry 100 09/14/24 06:04 Oxygen Delivery Room Air 09/14/24 06:04 Temperature 98.4 F 09/14/24 06:26 Pulse Rate 72 09/14/24 08:15 Respiratory Rate 20 09/14/24 08:15 Blood Pressure 111/80 09/14/24 07:42 Pulse Oximetry 98 09/14/24 07:42 Oxygen Delivery Room Air 09/14/24 06:22 Medical Decision Making MDM Narrative Medical decision making narrative: -Course: 63-year-old female presenting dry cough x5 days. No fevers. White count is normal. Chest x-ray is clear. Patient given symptomatic treatment with some improvement. Presentation most consistent with viral syndrome/bronchitis. Patient be discharged with return precautions -DDX includes but is not limited to: COVID flu bronchitis URI pneumonia PE ACS pneumothorax -Co-morbidities complicating care: Hypertension, cholesterol Independent EKG interpretation: Rhythm [sinus], Rate [75], [place] -[normal], [place] -[normal], QRS [narrow], QTC [normal], T waves -[negative for concerning inversions], ST Segments - [Negative for concerning elevations] Final interpretations: [Normal Sinus Rhythm] Vital Signs Vital Signs: Vital Signs Temperature 98.4 F 09/14/24 06:04 Pulse Rate 78 09/14/24 06:04 Respiratory Rate 18 09/14/24 06:04 Blood Pressure 104/78 09/14/24 06:04 Pulse Oximetry 100 09/14/24 06:04 Oxygen Delivery Room Air 09/14/24 06:04 Temperature 98.4 F 09/14/24 06:26 Pulse Rate 72 09/14/24 08:15 Respiratory Rate 20 09/14/24 08:15 Blood Pressure 111/80 09/14/24 07:42 Pulse Oximetry 98 09/14/24 07:42 Oxygen Delivery Room Air 09/14/24 06:22 Lab Data 09/14/24 06:19 09/14/24 06:19 Labs: Lab Results 09/14/24 09/14/24 Range/Units 06:19 07:32 WBC 5.8 (4.5-10.0) K/mm3 RBC 4.43 (4.2-5.4) M/mm3 Hgb 12.3 (12.0-15.0) g/dL Hct 38.0 (37.0-47.0) % MCV 85.8 (80-100) fl MCH 27.8 (26-34) pg MCHC 32.4 (32-36) g/dl RDW 15.0 H (11.5-14.5) % Plt Count 186 (150-375) k/mm3 MPV 10.3 (7.4-10.4) fl Immature Gran % (Auto) 0.2 (0-0.5) % Neut % (Auto) 53.2 (45.5-73.1) % Lymph % (Auto) 34.4 (18.3-44.2) % [place] % (Auto) 8.8 H (2.6-8.5) % Eos % (Auto) 2.9 (0-4.4) % Baso % (Auto) 0.5 (0.2-1.2) % Lymph # (Auto) 1.99 (0.9-3.2) K/mm3 [place] # (Auto) 0.5 (0.1-0.6) K/mm3 Eos # (Auto) 0.2 (0-0.3) K/mm3 Baso # (Auto) 0.0 (0.0-0.1) K/mm3 Abs Immat Gran (auto) 0.01 (0.00-0.031) K/mm3 Absolute Neuts (auto) 3.1 (1.3-6.7) K/mm3 Absolute Nucleated RBC 0.000 (0.0-0.012) K/mm3 Nucleated RBC % 0.0 (0.0-0.2) % Sodium 141 (137-145) mmol/L Potassium 3.9 (3.4-5.0) mmol/L Chloride 108 H (98-107) mmol/L Carbon Dioxide 25 (22-30) mmol/L Anion Gap 8 (4-12) mmol/L BUN 9 (7-17) mg/dL Creatinine 0.88 (0.7-1.0) mg/dL Estim Creat Clear Calc 54 ml/min Estimated GFR > 60 (59 - ) Glucose 113 H (65-110) mg/dL Calcium 9.5 (8.4-10.2) mg/dL Total Bilirubin 0.7 (0.2-1.3) mg/dL AST 34 (14-36) U/L ALT 39 H (6-35) U/L Alkaline Phosphatase 90 (38-126) U/L Total Protein 7.2 (6.3-8.2) g/dL Albumin 3.9 (3.5-5.1) g/dL Influenza A (RT-PCR) Negative (Negative) Influenza B (RT-PCR) Negative (Negative) RSV (RT-PCR) Negative (Negative) SARS-CoV-2 RNA (RT-PCR) Negative (Negative) Discharge Plan Discharge Clinical Impression: Acute viral syndrome Patient Disposition: Home Condition: Stable Instructions: Antibiotic Form, Acute Bronchitis (ED) Additional Instructions: You were seen in the ED for a cough. Please take Robitussin DM as needed cough. Use Tylenol headaches body aches. Follow-up with your primary care physician. If you feel your condition is getting worse, you develop fevers shortness of breath or any new symptoms please return to ED re-evaluation. Patient Language: Filipino Prescriptions: No Action cyclobenzaprine 10 mg tablet 10 mg PO TID PRN (Reason: muscle spasm) Qty: 14 0RF irbesartan 150 mg tablet 150 mg PO DAILY Qty: 30 11RF Follow-up/Referrals: Junior,Josh Ellis MD [Primary Care Provider] -
--- NOTE | 2024-09-14 07:55 | PCRCNOTE ---
Treatment delayed therapist with critical pt
[2024-09-14] MEDS: IPRATROPIUM 0.5 MG/ALBUTEROL SULFATE 2.5 MG AMPUL.NEB 3 ML 6 ML INHALATION (08:00)
[2024-09-14 08:24] LABS: Influenza A QL RT-PCR Negative (Negative); Influenza B QL RT-PCR Negative (Negative); RSV RNA, RT-PCR Negative (Negative); SARS-CoV-2 RNA PCR Negative (Negative)
== END 2024-09-14 08:45 | disposition home or self-care (01) ==
PROVIDERS: Student in an Organized Health Care Education/Training Program; Emergency Provider Emergency Medicine; PCP Obstetrics & Gynecology
DX: B34.9 Viral infection, unspecified (principal); Z20.822 Contact with and (suspected) exposure to COVID-19; I10 Essential (primary) hypertension; K21.9 Gastro-esophageal reflux disease without esophagitis; Z87.891 Personal history of nicotine dependence; Z90.49 Acquired absence of other specified parts of digestive tract; Z90.710 Acquired absence of both cervix and uterus
CPT/HCPCS: 36415; 71046; 80053; 85025; 87637; 93005; 94640; 99284; A9270